=== PATIENT | male | born 1980 | race African-American/Black ===

== ENCOUNTER 2021-02-17 08:40 | Emergency (ER) | payer OTHER, SELFPAY ==
--- NOTE | ~2021-02-17 | XR_ITS ---
EXAMINATION: XR hip LT min 3V w AP pelvis DATE: 02/17/2021 10:29 INDICATION: Left hip pain post injury TECHNIQUE: Anteroposterior view of the pelvis and anteroposterior, frog leg and cross-table lateral v iews of the left hip were obtained. COMPARISON: None. FINDINGS: Old healed intertrochanteric fracture at the proximal right femur with antegrade intramedullary nidhi a nd femoral neck dynamic compression screw fixation. Alignment remains near-anatomic. No acute fractur es identified. Mild bilateral hip osteoarthritis. Multiple phleboliths in the pelvis. IMPRESSION: 1. Mild left hip osteoarthritis. No acute osseous abnormality. 2. Old healed internally fixed intertrochanteric fracture of the proximal right femur. Reviewed, dictated and finalized at location A.
[2021-02-17 08:52] VITALS: BP 159/105; PULSE 97; RESP 20; TEMP 36.5; O2SAT 97
[2021-02-17 10:08] VITALS: BP 141/81; PULSE 89; RESP 20; O2SAT 100
--- NOTE | 2021-02-17 10:22 | ED.GENADULT ---
HPI - General Adult General Chief complaint: Unspecified Stated complaint: left groin pain Time Seen by Provider: 02/17/21 10:07 Source: patient Mode of arrival: ambulatory Limitations: no limitations History of Present Illness HPI narrative: This is a 40-year-old male that presents to the emergency department for left hip pain since yesterday. Reports he stepped off a curb and felt like he twisted the leg. Since he has had pain in the left hip/groin area. Worse with movement and relieved with rest. Denies decreased range of motion or numbness. Related Data Allergies Allergy/AdvReac Type Severity Reaction Status Date / Time No Known Allergies Allergy Unknown Verified 02/17/21 08:56 Review of Systems Review of Systems: CONSTITUTIONAL: Denies fever GASTROINTESTINAL: Denies abdominal pain, nausea, vomiting GENITOURINARY: Denies dysuria or hematuria. MUSCULOSKELETAL: Reports joint pain, and myalgia. NEUROLOGIC: Denies numbness, or weakness. 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 They have 1 child together and he has 3 other children. He drinks alcohol occasionally and in moderation moderation. He denies illicit substance use. He is interested in stopping tobacco use. It was discussed with him that they peeing and E cigarettes were not unacceptable alternative to smoking. Years smoked: 8 Smoking status: Current every day smoker Tobacco type: cigarettes Alcohol intake: unknown Substance use: never Substance use type: does not use Gender identity (if verbalized by the patient): Male Spiritual care concerns: No Agree to blood products: Yes Exam Narrative: GENERAL: Well-appearing, well-nourished, and in no acute distress. HEAD: Normocephalic, atraumatic. EYES: EOMI. CHEST: Clear to auscultation. No respiratory distress. No wheezes rales or rhonchi HEART: Regular rate and rhythm. No murmur heard. Normal peripheral pulses. ABDOMEN: Soft, nontender, nondistended, normal active bowel sounds. EXTREMITIES: Normal range of motion. Pain with active range of motion in the left hip. No edema or obvious deformity. Normal DP pulses. Normal sensation SKIN: Warm, dry, no rash. NEURO: No focal deficits. Alert and oriented x3. PSYCH: Normal mood and affect Course Vital Signs Vital signs: Vital Signs Temperature 97.7 F 02/17/21 08:52 Pulse Rate 97 02/17/21 08:52 Respiratory Rate 20 02/17/21 08:52 Blood Pressure 159/105 H 02/17/21 08:52 Pulse Oximetry 97 02/17/21 08:52 Temperature 97.7 F 02/17/21 08:52 Pulse Rate 88 02/17/21 10:43 Respiratory Rate 20 02/17/21 10:43 Blood Pressure 141/81 H 02/17/21 10:08 Pulse Oximetry 100 02/17/21 10:43 Medical Decision Making MDM Narrative Medical decision making narrative: Patient presents the emergency department for left hip pain after an injury yesterday. Left hip x-rays without acute osseous abnormalities. Patient instructed to rest, ice and take [id number] pain medication as needed. He is to follow-up with his primary care doctor. He was given warnings to return to the ER Vital Signs Vital Signs: Vital Signs Temperature 97.7 F 02/17/21 08:52 Pulse Rate 97 02/17/21 08:52 Respiratory Rate 20 02/17/21 08:52 Blood Pressure 159/105 H 02/17/21 08:52 Pulse Oximetry 97 02/17/21 08:
[2021-02-17] MEDS: KETOROLAC (*BKC) 60 MG/2 ML VIAL IM (10:38)
[2021-02-17] MEDS: ACETAMINOPHEN 500 MG TABLET 1000 MG PO (10:39)
[2021-02-17 10:43] VITALS: PULSE 88; RESP 20; O2SAT 100
[2021-02-17 11:08] VITALS: TEMP 36.5
[2021-02-17 11:09] VITALS: TEMP 36.5
[2021-02-17 11:33] VITALS: BP 141/81; PULSE 98; RESP 18; O2SAT 97
== END 2021-02-17 11:35 | disposition home or self-care (01) ==
PROVIDERS: Emergency Provider Emergency Medicine; PCP Emergency Medicine
DX: M25.552 Pain in left hip (principal); M10.9 Gout, unspecified; I10 Essential (primary) hypertension; E66.9 Obesity, unspecified; Z68.36 Body mass index [BMI] 36.0-36.9, adult; F17.210 Nicotine dependence, cigarettes, uncomplicated; M16.12 Unilateral primary osteoarthritis, left hip; X50.9XXA Other and unspecified overexertion or strenuous movements or postures, initial encounter
CPT/HCPCS: 73502; 96372; 99283; A9270; J1885

== ENCOUNTER 2022-05-30 09:06 | Emergency (ER) | payer BC, SELFPAY ==
--- NOTE | ~2022-05-30 | XR_ITS ---
EXAMINATION: XR knee RT 3V DATE: 05/30/2022 09:43 INDICATION: Right knee injury and pain. TECHNIQUE: 3 views of right knee were obtained. COMPARISON: None. FINDINGS: Bone alignment is normal. No fracture. There is mild osteoarthritis of medial and lateral c ompartments. There is a moderate-sized knee joint effusion. IMPRESSION: 1. Moderate-sized knee joint effusion. No fracture identified. 2. Mild right knee osteoarthritis. Reviewed, dictated and finalized at location A. TECHNICIAN
[2022-05-30 09:16] VITALS: BP 174/120; PULSE 100; RESP 19; TEMP 36.6; O2SAT 100
--- NOTE | 2022-05-30 10:07 | ED.LOWEXIN ---
HPI - Extremity Injury (Lower) General Chief Complaint: Extremity Injury, Lower Stated Complaint: R. knee pain Time Seen by Provider: 05/30/22 09:44 History of Present Illness HPI Narrative: Patient is a 41-year-old male here for evaluation of right knee pain over the past 3 days. Patient states that he was stepping down a curb when he accidentally twisted his leg and has noticed pain and swelling in his knee since. He has been taking ibuprofen without relief of his pain. He has been able to bear weight but just notes it is painful. No ankle, foot or lower leg pain. Related Data Allergies Allergy/AdvReac Type Severity Reaction Status Date / Time No Known Allergies Allergy Unknown Verified 02/17/21 08:56 Review of Systems Review of Systems: Gen: Denies fevers or chills Eyes: Denies eye pain or visual change ENT: Denies congestion Respiratory: Denies shortness of breath or cough CV: Denies chest pain or palpitations GI: Denies abdominal pain nausea, emesis or diarrhea denies burning, urgency, frequency or hematuria Musculoskeletal: Reports right knee pain. 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 They have 1 child together and he has 3 other children. He drinks alcohol occasionally and in moderation moderation. He denies illicit substance use. He is interested in stopping tobacco use. It was discussed with him that they peeing and E cigarettes were not unacceptable alternative to smoking. Years smoked: 8 Smoking status: Current every day smoker Tobacco type: cigarettes Alcohol intake: unknown Substance use: never Substance use type: does not use Gender identity (if verbalized by the patient): Male Spiritual care concerns: No Agree to blood products: Yes Exam Narrative: APPEARANCE: Well appearing, no pain in distress, well-nourished. Head: Normocephalic and atraumatic. EYES: PERRLA/EOMI, conjunctivae clear NOSE: No nasal drainage EARS: External ear normal in appearance THROAT: Oropharynx is clear. Mucous membranes are moist. NECK: Supple. No adenopathy, no masses. RESPIRATORY: Airway patent, respirations nonlabored. Clear to auscultation bilaterally, no rales, rhonchi, wheezing. CARDIOVASCULAR: Strong DP and PT pulses bilaterally. Regular rate and rhythm without murmurs, rubs, or gallops. ABDOMINAL: Normoactive bowel sounds. Soft, nontender, nondistended. No rebound tenderness or guarding. MUSCULOSKELETAL: Tender to palpation along medial joint line of right knee. Mild swelling noted. Pain with active flexion of the knee, no pain with extension. Slight laxity noted with valgus stress. Negative anterior and posterior drawer test. NEURO: Normal speech. No focal neurologic deficits. SKIN: Skin is warm and dry. No rashes. PSYCHIATRIC: Normal affect/mood. Course Vital Signs Vital signs: Vital Signs Temperature 98 F 05/30/22 09:16 Pulse Rate 100 05/30/22 09:16 Respiratory Rate 19 05/30/22 09:16 Blood Pressure 174/120 H 05/30/22 09:16 Pulse Oximetry 100 05/30/22 09:16 Oxygen Delivery Room Air 05/30/22 09:16 Temperature 98 F 05/30/22 09:16 Pulse Rate 100 05/30/22 09:16 Respiratory Rate 19 05/30/22 09:16 Blood Pressure 174/120 H 05/30/22 09:16 P
--- NOTE | 2022-05-30 10:20 | PC.NURSE ---
Jimy wrap applied to right knee and crutches given. 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
== END 2022-05-30 10:22 | disposition home or self-care (01) ==
LOC: ANHED 10:05
PROVIDERS: Emergency Provider Physician Assistant; PCP Emergency Medicine
DX: S83.91XA Sprain of unspecified site of right knee, initial encounter (principal); I10 Essential (primary) hypertension; M17.11 Unilateral primary osteoarthritis, right knee; E66.9 Obesity, unspecified; Z68.36 Body mass index [BMI] 36.0-36.9, adult; F17.210 Nicotine dependence, cigarettes, uncomplicated; X50.9XXA Other and unspecified overexertion or strenuous movements or postures, initial encounter
CPT/HCPCS: 73562; 99283

== ENCOUNTER 2022-06-27 05:55 | Emergency (ER) | payer OTHER, BC, SELFPAY ==
--- NOTE | ~2022-06-27 | XR_ITS ---
EXAMINATION: XR knee RT min 4V DATE: 06/27/2022 07:20 INDICATION: Right knee injury. TECHNIQUE: 4 views of right knee were obtained. COMPARISON: Right knee radiographs 05/30/2022 FINDINGS: Bone alignment is normal. No fracture. There is moderate osteoarthritis of lateral compartm ent and mild osteoarthritis of medial and patellofemoral compartments. There is a moderate-sized righ t knee joint effusion. IMPRESSION: 1. Moderate right knee osteoarthritis. 2. Stable moderate-sized right knee joint effusion. Reviewed, dictated and finalized at location A. NING TECHNICIAN
[2022-06-27 05:59] VITALS: BP 186/134; PULSE 100; RESP 20; TEMP 36.7; O2SAT 98
[2022-06-27 07:05] VITALS: BP 149/102; PULSE 78; RESP 16; O2SAT 97
[2022-06-27 07:06] VITALS: O2SAT 98
[2022-06-27 07:15] VITALS: O2SAT 98
--- NOTE | 2022-06-27 07:19 | PC.NURSE ---
Report given to FE Mcgraw.
--- NOTE | 2022-06-27 08:23 | ED.GENADULT ---
HPI - General Adult General Chief complaint: Extremity Injury, Lower Stated complaint: R knee pain Time Seen by Provider: 06/27/22 06:57 History of Present Illness HPI narrative: 41-year-old male presented to the emergency department for evaluation of worsening right knee pain. Patient states he had a knee injury due to hyperextension May 28. Patient did have recent follow-up with orthopedics and was referred to a specialist in [place]. Patient has a scheduled for Thursday. Patient has been taking tramadol for pain control with no significant control. Patient denies any new injury. On arrival to the emergency department patient was not wearing a knee immobilizer. Related Data Allergies Allergy/AdvReac Type Severity Reaction Status Date / Time No Known Allergies Allergy Unknown Verified 02/17/21 08:56 Review of Systems Review of Systems: CONSTITUTIONAL: Denies fever, chills, or sweats. EYES: Denies visual changes, redness, or discharge. ENT: Denies rhinorrhea, congestion, sore throat, or otalgia. CARDIOVASCULAR: Denies chest pain, palpitations, or edema. RESPIRATORY: Denies cough or dyspnea. GASTROINTESTINAL: Denies abdominal pain, nausea, vomiting, or diarrhea. GENITOURINARY: Denies dysuria or hematuria. SKIN: Denies rash or itching. MUSCULOSKELETAL: See HPI NEUROLOGIC: Denies headache, numbness, or weakness. 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 They have 1 child together and he has 3 other children. He drinks alcohol occasionally and in moderation moderation. He denies illicit substance use. He is interested in stopping tobacco use. It was discussed with him that they peeing and E cigarettes were not unacceptable alternative to smoking. Years smoked: 8 Smoking status: Current every day smoker Tobacco type: cigarettes Alcohol intake: unknown Substance use: never Substance use type: does not use Gender identity (if verbalized by the patient): Male Spiritual care concerns: No Agree to blood products: Yes Exam Narrative: APPEARANCE: Well appearing, no pain, no distress, well-nourished. HEAD: normocephalic, atraumatic. EYES: PERRLA/EOMI, conjunctivae clear. NOSE: Normal no drainage NECK: Supple. No adenopathy, no masses. RESPIRATORY: Airway patent, respirations nonlabored. Clear to auscultation bilaterally, no rales, rhonchi, wheezing. CARDIOVASCULAR: Regular rate and rhythm without murmurs rubs or gallops. ABDOMINAL: Soft, nontender, nondistended, normal bowel sounds MUSCULOSKELETAL: No tenderness to upper leg or lower leg. Patient does have a notable knee effusion with minimal tenderness to palpation. Decreased range of motion no overlying erythema. No significant pain with range of motion NEURO: Alert. Cranial nerves II through XII intact. Grossly intact SKIN: Warm, dry. Normal Color Course Course Emergency Course: Patient's x-ray showed osteoarthritis with a knee effusion. Differential diagnosis includes traumatic effusion, hemarthrosis, septic knee. Patient has no significant pain with range of motion but does have limited range of motion. Less concern for septic arthritis. Patient does have follow-up scheduled with the specialist on Thursday. Patient has been taking tramadol for pain control. Patient was provided a small prescription for [place] for additional pain control. Patient was also advised to take
[2022-06-27] MEDS: HYDROcodone/acetaminophen (*CRX) 5-325 MG TABLET 1 TAB PO (08:37)
[2022-06-27] MEDS: KETOROLAC 15 MG/ML VIAL (*BKC) IV PUSH (08:38)
[2022-06-27 08:45] VITALS: BP 170/110; PULSE 70; RESP 12; O2SAT 98
== END 2022-06-27 09:00 | disposition home or self-care (01) ==
PROVIDERS: Emergency Provider Emergency Medicine; PCP Emergency Medicine
DX: M25.461 Effusion, right knee (principal); I10 Essential (primary) hypertension; M10.9 Gout, unspecified; E66.9 Obesity, unspecified; F17.210 Nicotine dependence, cigarettes, uncomplicated; M17.11 Unilateral primary osteoarthritis, right knee
CPT/HCPCS: 73564; 96374; 99284; A9270; J1885

== ENCOUNTER 2023-08-19 13:25 | Emergency (ER) | payer OTHER, MEDICAID, SELFPAY ==
[2023-08-19 13:40] VITALS: BP 155/112; PULSE 96; RESP 20; TEMP 36.2; O2SAT 100
--- NOTE | 2023-08-19 13:48 | ED.GENADULT ---
HPI - General Adult General Chief complaint: Extremity Problem,Nontraumatic Stated complaint: Feet Swelling Time Seen by Provider: 08/19/23 13:48 Source: patient Mode of arrival: ambulatory Limitations: no limitations History of Present Illness HPI narrative: 43-year-old male presents with complaint of pain to left ankle with swelling for the past 2 days. Patient reports history of gout to left ankle and foot. Thinks that that is what is going on today. Patient states that he is ambulatory allowed while at work and is in pain. Would like a few days off of work. Patient's blood pressure elevated today. States that he still has hydrochlorothiazide and amlodipine that he took this morning. States that he has not been taking his blood pressure medications every day because he is trying to make them last until he can find a new primary care physician. Denies chest pain And shortness of breath. all systems reviewed and negative except as noted above. Related Data Home Medications Medication Instructions Recorded Confirmed amlodipine 5 mg tablet (Norvasc) 10 mg PO QAM 08/19/23 carvedilol 6.25 mg tablet mg 08/19/23 hydrochlorothiazide 12.5 mg capsule mg 08/19/23 Allergies Allergy/AdvReac Type Severity Reaction Status Date / Time No Known Allergies Allergy Unknown Verified 08/19/23 13:30 Review of Systems Review of Systems: CONSTITUTIONAL: Denies fever, chills, or sweats. EYES: Denies visual changes, redness, or discharge. ENT: Denies rhinorrhea, congestion, sore throat, or otalgia. CARDIOVASCULAR: Denies chest pain, palpitations, or edema. RESPIRATORY: Denies cough or dyspnea. GASTROINTESTINAL: Denies abdominal pain, nausea, vomiting, or diarrhea. GENITOURINARY: Denies dysuria or hematuria. SKIN: Denies rash or itching. MUSCULOSKELETAL: Denies back pain, joint pain, or myalgia. Reports pain to left ankle with swelling. NEUROLOGIC: Denies headache, numbness, or weakness. PSYCHIATRIC: Denies anxiety or depression. All other systems reviewed are negative, except as documented in HPI. PENDING SALE TO [facility] Past Medical History Medical History Gout HTN (hypertension) Obesity (BMI 30-39.9) Surgical History Surgical History No history of previous surgery Family History Family History Father No known health problems Mother No known health problems Social History Social History (Updated 04/17/19 @ 05:53 by Yasmeen Romo, DO) Social History: The patient is in [employer]. 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 They have 1 child together and he has 3 other children. He drinks alcohol occasionally and in moderation moderation. He denies illicit substance use. He is interested in stopping tobacco use. It was discussed with him that they peeing and E cigarettes were not unacceptable alternative to smoking. Years smoked: 8 Smoking status: Current every day smoker Tobacco type: cigarettes Alcohol intake: unknown Substance use: never Substance use type: does not use Gender identity (if verbalized by the patient): Male Spiritual care concerns: No Agree to blood products: Yes Comments At time of signature, agree with nursing past medical, surgical, social and family history. There is no relevant family history pertinent to the presenting complaint. Exam Narrative: GENERAL: This is a well-nourished, well-developed patient, in no apparent distress. HEAD: normocephalic, atraumatic. EYES: PERRL. Sclera clear/white. Vision is grossly intact. EARS: External ears normal NOSE: External nose normal NECK: Neck supple, non-tender without lymphadenopathy, masses or thyromegaly. CARDIOVASCULAR: Regular rate and rhythm without murmurs, gallops, or rubs. RESPIRATORY: Clear to auscultation. Breath sounds equal bila
== END 2023-08-19 14:08 | disposition home or self-care (01) ==
PROVIDERS: Emergency Provider Nurse Practitioner Family; PCP Emergency Medicine
DX: I10 Essential (primary) hypertension (principal); M10.9 Gout, unspecified; F17.210 Nicotine dependence, cigarettes, uncomplicated; E66.9 Obesity, unspecified; Z68.38 Body mass index [BMI] 38.0-38.9, adult
CPT/HCPCS: 99211; 99213; G0463

== ENCOUNTER 2023-12-11 07:33 | Emergency (ER) | payer OTHER, MEDICAID, SELFPAY ==
[2023-12-11 07:40] VITALS: BP 190/132; PULSE 102; RESP 18; TEMP 36.4; O2SAT 98
[2023-12-11 08:22] VITALS: BP 188/126; PULSE 89; RESP 24; O2SAT 95
[2023-12-11 09:19] VITALS: BP 201/125; PULSE 88; RESP 22; O2SAT 98
--- NOTE | 2023-12-11 09:41 | ED.EXTPRO ---
HPI - Extremity Problem General Chief complaint: Extremity Problem,Nontraumatic Stated complaint: bilateral ankle pain, gout flare up? Time Seen by Provider: 12/11/23 09:18 History of Present Illness HPI Narrative: 43-year-old male with history of uncontrolled hypertension, obesity, gout, medication noncompliance presents to the emergency department with concerns for a gout attack. Patient states approximately 4 days ago he began having pain in his right ankle and is now having pain in the dorsum of his left foot. States this has happened in the past and has been due to gout. States he has been treated for gout with improvement, last treatment was in August. He denies injury or trauma to his ankles or feet, fever, nausea or vomiting. He denies pain or difficulty with range of motion of his feet or ankles. He also presents with hypertension. he has a history of hypertension and is prescribed amlodipine 10 mg and hydrochlorothiazide 12.5 mg. States he does not take his medications daily and he has no reason for those. States his last dose of antihypertensives was approximately 5 days ago, however per chart review he has not filled his medications since 2020. He denies chest pain, shortness of breath, vision changes, headache, focal numbness or weakness. Related Data Home Medications Medication Instructions Recorded Confirmed amlodipine 5 mg tablet (Norvasc) 10 mg PO QAM 08/19/23 carvedilol 6.25 mg tablet mg 08/19/23 hydrochlorothiazide 12.5 mg capsule mg 08/19/23 Allergies Allergy/AdvReac Type Severity Reaction Status Date / Time No Known Allergies Allergy Unknown Verified 12/11/23 07:54 Review of Systems Review of Systems: CONSTITUTIONAL: Denies fever, chills, or sweats. EYES: Denies visual changes, redness, or discharge. ENT: Denies rhinorrhea, congestion, sore throat, or otalgia. CARDIOVASCULAR: Denies chest pain, palpitations, or edema. RESPIRATORY: Denies cough or dyspnea. GASTROINTESTINAL: Denies abdominal pain, nausea, vomiting, or diarrhea. GENITOURINARY: Denies dysuria or hematuria. SKIN: Denies rash or itching. MUSCULOSKELETAL: See HPI NEUROLOGIC: Denies headache, numbness, or weakness. PSYCHIATRIC: Denies anxiety or depression. [facility] Past Medical History Medical History Gout HTN (hypertension) Obesity (BMI 30-39.9) Surgical History Surgical History No history of previous surgery Family History Family History Father No known health problems Mother No known health problems Social History Social History Social History: The patient is in [employer]. 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 They have 1 child together and he has 3 other children. He drinks alcohol occasionally and in moderation moderation. He denies illicit substance use. He is interested in stopping tobacco use. It was discussed with him that they peeing and E cigarettes were not unacceptable alternative to smoking. Years smoked: 8 Smoking status: Current every day smoker Tobacco type: cigarettes Alcohol intake: unknown Substance use: never Substance use type: does not use Gender identity (if verbalized by the patient): Male Spiritual care concerns: No Agree to blood products: Yes Exam Narrative: GENERAL: Well-appearing, well-nourished, and in no acute distress. HEAD: Normocephalic, atraumatic. EYES: PERRLA and EOMI. ENT: Nares clear, no rhinorrhea or epistaxis. Mucous membranes moist. NECK: Supple. CHEST: Clear to auscultation. No respiratory distress. HEART: Regular rate and rhythm. No murmur heard. Normal peripheral pulses. ABDOMEN: Soft, nontender, nondistended, normal active bowel sounds. EXTREMITIES: RLE: minimal tenderness to the posterior
[2023-12-11] MEDS: amLODIPine BESYLATE 10 MG TABLET PO (09:55)
[2023-12-11] MEDS: hydroCHLOROthiazide 12.5 MG CAPSULE PO (09:55)
[2023-12-11 09:56] VITALS: BP 168/129; PULSE 91; RESP 16; O2SAT 100
[2023-12-11 10:07] LABS: Uric Acid 8.8 mg/dL (3.5-8.5)
[2023-12-11] MEDS: HYDROcodone/acetaminophen (*CRX) 5-325 MG TABLET 1 TAB PO (10:26)
[2023-12-11] MEDS: predniSONE 40 MG, predniSONE 10 MG 50 MG PO (10:26)
[2023-12-11 10:38] VITALS: BP 171/116; PULSE 90; RESP 21; O2SAT 100
== END 2023-12-11 10:40 | disposition home or self-care (01) ==
PROVIDERS: Emergency Provider Physician Assistant; PCP Emergency Medicine
DX: M79.672 Pain in left foot (principal); M25.571 Pain in right ankle and joints of right foot; I10 Essential (primary) hypertension; F17.210 Nicotine dependence, cigarettes, uncomplicated
CPT/HCPCS: 36415; 84550; 99283; A9270; J7512

== ENCOUNTER 2024-02-04 20:15 | Emergency (ER) | payer OTHER, MEDICAID, SELFPAY ==
[2024-02-04 20:26] VITALS: BP 164/116; PULSE 96; RESP 18; TEMP 36.6; O2SAT 97
--- NOTE | 2024-02-04 21:03 | ED.DENTAL ---
HPI - Dental/Oral General Chief complaint: Dental/Oral Stated complaint: right upper tooth pain Time Seen by Provider: 02/04/24 20:46 Source: patient Mode of arrival: ambulatory Limitations: no limitations History of Present Illness HPI Narrative: This is a 43 year old male that presents to the ER for dental pain. Ongoing over the last couple of days. Reports pain in the right upper and lower molars. Reports worse with eating. He does not currently have a dentist. Denies fever, erythema, edema or drainage. MD Complaint: tooth pain Related Data Home Medications Medication Instructions Recorded Confirmed amlodipine 5 mg tablet (Norvasc) 10 mg PO QAM 08/19/23 carvedilol 6.25 mg tablet mg 08/19/23 hydrochlorothiazide 12.5 mg capsule mg 08/19/23 Allergies Allergy/AdvReac Type Severity Reaction Status Date / Time No Known Allergies Allergy Unknown Verified 12/11/23 07:54 Review of Systems Review of Systems: CONSTITUTIONAL: Denies fever ENT: Reports dentalgia All systems reviewed & are unremarkable except as noted in HPI and below PMFSH Past Medical History Medical History Gout HTN (hypertension) Obesity (BMI 30-39.9) Surgical History Surgical History No history of previous surgery Family History Family History Father No known health problems Mother No known health problems Social History Social History Social History: 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 They have 1 child together and he has 3 other children. He drinks alcohol occasionally and in moderation moderation. He denies illicit substance use. He is interested in stopping tobacco use. It was discussed with him that they peeing and E cigarettes were not unacceptable alternative to smoking. Years smoked: 8 Smoking status: Current every day smoker Tobacco type: cigarettes Alcohol intake: unknown Substance use: never Substance use type: does not use Gender identity (if verbalized by the patient): Male Spiritual care concerns: No Agree to blood products: Yes Exam Narrative: GENERAL: Well-appearing, well-nourished, and in no acute distress. HEAD: Normocephalic, atraumatic. EYES: EOMI. ENT: Nares clear, no rhinorrhea or epistaxis. Mucous membranes moist. Oropharynx without tonsillar hypertrophy exudate or other lesions. Poor dentition. No erythema, edema or fluctuance surrounding right upper and lower molars to suggest abscess. No trismus, floor of mouth is soft NECK: Supple. No adenopathy or masses. CHEST: Clear to auscultation. No respiratory distress. No wheezes rales or rhonchi HEART: Regular rate and rhythm. No murmur heard. Normal peripheral pulses. EXTREMITIES: Normal range of motion. No edema. SKIN: Warm, dry, no rash. NEURO: No focal deficits. Alert and oriented x3. PSYCH: Normal mood and affect Course Vital Signs Vital signs: Vital Signs Temperature 97.8 F 02/04/24 20:26 Pulse Rate 96 02/04/24 20:26 Respiratory Rate 18 02/04/24 20:26 Blood Pressure 164/116 H 02/04/24 20:26 Pulse Oximetry 97 02/04/24 20:26 Temperature 97.8 F 02/04/24 20:26 Pulse Rate 96 02/04/24 20:26 Respiratory Rate 18 02/04/24 20:26 Blood Pressure 164/116 H 02/04/24 20:26 Pulse Oximetry 97 02/04/24 20:26 MDM - Dental/Oral MDM Narrative Medical decision making narrative: Patient presents to the emergency department for dentalgia ongoing over the last couple of days. He is afebrile and nontoxic appearing. No evidence of abscess on exam. Will be started on Augmentin and instructed to have close follow-up with a dentist. He was given warnings to return to the ER Differential Diagnosis Differential diagnosis: L
[2024-02-04] MEDS: KETOROLAC 30 MG/ML VIAL (*BKC) IM (21:09)
[2024-02-04] MEDS: ACETAMINOPHEN 500 MG TABLET 1000 MG PO (21:09)
== END 2024-02-04 21:35 | disposition home or self-care (01) ==
LOC: ANHED 21:23
PROVIDERS: Emergency Provider Physician Assistant; PCP Emergency Medicine
DX: K08.89 Other specified disorders of teeth and supporting structures (principal); I10 Essential (primary) hypertension; E66.9 Obesity, unspecified; Z68.41 Body mass index [BMI] 40.0-44.9, adult; M10.9 Gout, unspecified; F17.210 Nicotine dependence, cigarettes, uncomplicated
CPT/HCPCS: 96372; 99283; A9270; J1885

== ENCOUNTER 2024-02-23 16:58 | Emergency (ER) | payer OTHER, MEDICAID, SELFPAY ==
--- NOTE | ~2024-02-23 | XR_ITS ---
EXAM: XR foot RT min 3V DATE: 02/23/2024 17:19 HISTORY: gout? . COMPARISON: 05/15/2015. FINDINGS: Normal mineralization. No fracture or dislocation. No lytic or blastic lesion. Moderate randolph int space narrowing and subchondral sclerosis at the first MTP joint. Moderate hallux valgus. Lucent erosions with sclerotic margins at the first MTP joint, may represent gouty erosions versus artifact from osteoarthritic changes and subchondral cysts. Mild Achilles enthesopathy. Mild degenerative mejias ges in the midfoot joints No erosion or periosteal change. Soft tissues within normal limits. IMPRESSION: Moderate arthritis at the first MTP joint with moderate hallux valgus. Apparent erosions with sclerotic margins may represent gout in the appropriate clinical/laboratory context. Reviewed, dictated and finalized at location K. IMPRESSION: Moderate arthritis at the first MTP joint with moderate hallux valg us. Apparent erosions with sclerotic margins may represent gout in the appropri ate clinical/laboratory context.
[2024-02-23 17:01] VITALS: BP 190/127; PULSE 102; RESP 18; TEMP 36.6; O2SAT 96
--- NOTE | 2024-02-23 17:06 | ED.GENADULT ---
HPI - General Adult General Chief complaint: Unspecified <Sandy Tellez PA-C - Last Filed: 02/23/24 17:08> Stated complaint: gout <Sandy Tellez PA-C - Last Filed: 02/23/24 17:08> Time Seen by Provider: 02/23/24 19:55 <Sandy Tellez PA-C - Last Filed: 02/23/24 17:08> Focused HPI: 43-year-old male with history of CAD and hypertension presents to the emergency department with concerns for a gout attack to his right foot. Patient states he began having pain in his right foot and states it feels like gout. Describes it as an aching sensation. Denies injury trauma, fever. He was found to be hypertensive at 190/127 in triage. He denies vision changes, headache, chest pain or shortness of breath, focal numbness or weakness. States he has been taking his blood pressure medications as directed. GENERAL: Well-appearing, well-nourished, and in no acute distress. HEAD: Normocephalic, atraumatic. CHEST: Clear to auscultation. ?No respiratory distress. EXT: Tenderness to the right navicular bone and 1st and 2nd proximal aspect of the 1st and 2nd metatarsals with overlying edema and tenderness to palpation. No warmth erythema. Limited range of motion of the ankle secondary to pain. Cap refill less than 2. Sensation intact. Extremity warm and dry. HEART: Regular rate and rhythm.? NEURO: ?Alert and oriented x3. Patient screened in triage and initial orders placed.? ?Additional care and disposition to be based upon?diagnostic testing and treatment. <Sandy Tellez PA-C - Last Filed: 02/23/24 17:08> History of Present Illness HPI narrative: 43-year-old male with a history of gouty arthropathy, hypertension, coronary disease. Presents with signs symptoms consistent with gout. He states he has previous gout flares but has been well controlled for some time. He was previously on colchicine and indomethacin. He states he is very steroid responsive. He has been having some pain and swelling in his right elbow that resolved and now developed similarly into his right foot. He states that is so painful is hard to bear weight on it. No traumatic injuries in no other obvious symptoms. He states it feels very consistent with his normal gout flare. Does not seen but presently for this and has no recent use of steroids. Was otherwise in his normal state of health and denies any systemic features such as chest pain, shortness a breath, nausea, vomiting, abdominal pain, back pain, fever, chills. <Juan Puga MD - Last Filed: 02/23/24 20:15> Related Data Home medications: Home Medications Medication Instructions Recorded Confirmed amlodipine 5 mg tablet (Norvasc) 10 mg PO QAM 08/19/23 carvedilol 6.25 mg tablet mg 08/19/23 hydrochlorothiazide 12.5 mg capsule mg 08/19/23 <Sandy Tellez PA-C - Last Filed: 02/23/24 17:08> Allergies/adverse reactions: Allergies Allergy/AdvReac Type Severity Reaction Status Date / Time No Known Allergies Allergy Unknown Verified 02/23/24 17:23 <Sandy Tellez PA-C - Last Filed: 02/23/24 17:08> Review of Systems Review of Systems: As reviewed above in HPI <Juan Puga MD - Last Filed: 02/23/24 20:15> ON LICENSE OF [facility] Past Medical History Medical History: Medical History Gout HTN (hypertension) Obesity (BMI 30-39.9) <Sandy Tellez PA-C - Last Filed: 02/23/24 17:08> Surgical History Surgical History: Surgical History No history of previous surgery <Sandy Tellez PA-C - Last Filed: 02/23/24 17:08> Family History Family History: Family History Father No known health problems Mother No known health problems <Sandy Tellez PA-C - Last Filed: 02/23/24 17:08> Social History Social History: Soc
[2024-02-23 17:31] LABS: Basophils Percent Auto 0.6 % (0.2-1.2); Eosinophils Absolute Auto 0.3 K/mm3 (0-0.3); Eosinophils Percent Auto 5.1 % (0-4.4); Immature Granulocyte Absolute 0.01 K/mm3 (0.00-0.031); Immature Granulocyte Percent A 0.2 % (0-0.5); Lymphocytes Absolute Auto 1.77 K/mm3 (0.9-3.2); Lymphocytes Percent Auto 28.2 % (18.3-44.2); Mean Corpuscular HGB Conc 34.1 g/dl (32-36); Mean Corpuscular Hemoglobin 28.2 pg (26-34); Mean Corpuscular Volume 82.7 fl (80-100); Mean Platelet Volume 11.1 fl (7.4-10.4); Monocytes Absolute Auto 0.6 K/mm3 (0.1-0.6); Monocytes Percent Auto 9.9 % (2.6-8.5); Neutrophils Absolute Auto 3.5 K/mm3 (1.3-6.7); Platelet Count Result 294 k/mm3 (150-375); Red Blood Count 4.96 M/mm3 (4.6-6.20); Red Cell Distribution Width 13.3 % (11.5-14.5); White Blood Count 6.3 K/mm3 (4.5-10.0)
[2024-02-23] MEDS: IBUPROFEN 400 MG TABLET 800 MG PO (17:41)
[2024-02-23 17:48] LABS: Anion Gap 11 mmol/L (4-12); Blood Urea Nitrogen 11 mg/dL (9-20); CRP < 0.5 mg/dL (<1.0); Calcium 9.2 mg/dL (8.4-10.2); Carbon Dioxide 28 mmol/L (22-30); Chloride 100 mmol/L (98-107); Estimated CRCL calculation 93 ml/min; Estimated Glomerular Filt Rate > 60; Glucose 108 mg/dL (65-110); Potassium 3.6 mmol/L (3.4-5.0); Sodium 139 mmol/L (137-145); Uric Acid 10.1 mg/dL (3.5-8.5)
[2024-02-23 18:16] LABS: Erythrocyte Sedimentation Rate 31 mm/hr (0-20)
[2024-02-23] MEDS: predniSONE 20 MG TABLET 60 MG PO (20:19)
[2024-02-23] MEDS: HYDROcodone/acetaminophen (*CRX) 10-325 MG TABLET 1 TAB PO (20:19)
[2024-02-23] MEDS: KETOROLAC 30 MG/ML VIAL (*BKC) IM (20:20)
== END 2024-02-23 20:42 | disposition home or self-care (01) ==
LOC: ANHED 20:18
PROVIDERS: Physician Assistant; Emergency Provider Student in an Organized Health Care Education/Training Program; PCP Emergency Medicine
DX: M10.9 Gout, unspecified (principal); I25.10 Atherosclerotic heart disease of native coronary artery without angina pectoris; I10 Essential (primary) hypertension; E66.9 Obesity, unspecified; Z68.38 Body mass index [BMI] 38.0-38.9, adult; F17.290 Nicotine dependence, other tobacco product, uncomplicated; Z79.899 Other long term (current) drug therapy; M19.071 Primary osteoarthritis, right ankle and foot; M20.11 Hallux valgus (acquired), right foot
CPT/HCPCS: 36415; 73630; 80048; 84550; 85025; 85652; 86140; 96372; 99283; A9270; J1885; J7512

== ENCOUNTER 2024-04-25 13:38 | Emergency (ER) | payer MEDICAID, SELFPAY ==
--- NOTE | ~2024-04-25 | XR_ITS ---
EXAMINATION: XR foot RT min 3V DATE: 04/25/2024 14:23 INDICATION: Pain at right first metatarsophalangeal joint. Gout. TECHNIQUE: 4 views of right foot were obtained. COMPARISON: Right foot radiographs 02/23/2024 FINDINGS: There is moderate hallux valgus. No fracture. Again seen are erosions and osteophytes at fi rst metatarsophalangeal joint. There is mild osteoarthritis of second distal interphalangeal joint an d some of the midfoot joints. IMPRESSION: 1. Unchanged arthritis of first metatarsophalangeal joint, likely a combination of osteoarthritis and inflammatory arthropathy such as gout. 2. Polyarticular osteoarthritis. 3. Moderate hallux valgus. Reviewed, dictated and finalized at location A. [employer]
--- NOTE | ~2024-04-25 | XR_ITS ---
XR elbow LT min 3V Ordering provider: Blanca Bee PA-C History: . pain, gout attack . Comparison: None. FINDINGS: BONES: No acute fracture or dislocation. JOINT SPACES: Normal. SOFT TISSUES: No definite joint effusion. Radiopaque shadows are seen in the soft tissues posteriorly which may be foreign bodies. IMPRESSION: No acute osseous abnormality left elbow. Possible foreign bodies in the soft tissues posteriorly. Reviewed, dictated and finalized at location A. [employer]
[2024-04-25 13:43] VITALS: BP 179/130; PULSE 114; RESP 20; TEMP 36.9; O2SAT 97
--- NOTE | 2024-04-25 13:54 | ED.EXTPRO ---
HPI - Extremity Problem General Chief complaint: Extremity Problem,Nontraumatic Stated complaint: gout problems Time Seen by Provider: 04/25/24 13:45 Source: patient Mode of arrival: ambulatory Limitations: no limitations History of Present Illness HPI Narrative: Patient is a 43-year-old male who presents to the ED with report of right foot pain. Patient reports history of previous gout and states this current pain feels similar. Reports pain to right 1st toe over the last several days. Denies known injury. Was seen in the ED in February for similar symptoms, prescribed steroids and indomethacin which he states significantly improved his symptoms. Has not taken anything for pain today. Denies numbness. Also reports slight discomfort to left elbow. No injury. Related Data Home Medications Medication Instructions Recorded Confirmed amlodipine 5 mg tablet (Norvasc) 10 mg PO QAM 08/19/23 carvedilol 6.25 mg tablet mg 08/19/23 hydrochlorothiazide 12.5 mg capsule mg 08/19/23 Allergies Allergy/AdvReac Type Severity Reaction Status Date / Time No Known Allergies Allergy Unknown Verified 02/23/24 17:23 Review of Systems Review of Systems: All systems reviewed & are unremarkable except as noted in HPI. 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 They have 1 child together and he has 3 other children. He drinks alcohol occasionally and in moderation moderation. He denies illicit substance use. He is interested in stopping tobacco use. It was discussed with him that they peeing and E cigarettes were not unacceptable alternative to smoking. Years smoked: 8 Smoking status: Current every day smoker Tobacco type: cigarettes Alcohol intake: unknown Substance use: never Substance use type: does not use Gender identity (if verbalized by the patient): Male Spiritual care concerns: No Agree to blood products: Yes Exam Narrative: GENERAL: Well appearing, morbidly obese with BMI 41.5, non-toxic, in no acute distress. HEAD: Normocephalic, atraumatic. RESPIRATORY: Airway patent, respirations nonlabored. Clear to auscultation bilaterally, no rales, rhonchi, wheezing. CARDIOVASCULAR: Regular rate and rhythm without murmurs, rubs, or gallops. MUSCULOSKELETAL: Moves all extremities. No gross deformities. Mild swelling, minimal erythema/warmth, and focal TTP to R 1st MTP joint. No wounds. L elbow joint with minimal TTP over olecranon. No significant swelling. No warmth or erythema. SKIN: Warm, dry, normal color. NEURO: A&O X3. Speech clear. Cranial nerves II-XII grossly intact. Mildly antalgic gait. No ataxic movements. PSYCHIATRIC: Appropriate mood and affect. Normal interaction. Course Vital Signs Vital signs: Vital Signs Temperature 98.5 F 04/25/24 13:43 Pulse Rate 114 H 04/25/24 13:43 Respiratory Rate 20 04/25/24 13:43 Blood Pressure 179/130 H 04/25/24 13:43 Pulse Oximetry 97 04/25/24 13:43 Oxygen Delivery Room Air 04/25/24 13:43 Temperature 98.5 F 04/25/24 13:43 Pulse Rate 70 04/25/24 14:49 Respiratory Rate 15 04/25/24 14:49 Blood Pressure 179/130 H 04/25/24 13:43 Pulse Oximetry 100 04/25/24 14:49 Oxygen Delivery Room Air 04/25/24 13:43 MDM - Extremity (Nontraumatic) MDM Narrative Medical decision making narrative: patient presented to ED with suspected recurrent gout. Pain to 1st MTP of R foot. Also reporting some discomfort with L elbow. patient has long history of gout and states pain feels similar to previous exacerbations. In similar location to previous exacerbations. X-ray of right foot consistent with gout. No acute osseous abnormality. X-ray of left elbow negative. Does show possible foreign body, no foreign bodies noted on exam. Have low suspicion for cellulitis or DVT at this time, patient denies any fevers. Vital signs are otherwise stable. No indication for further laboratory studies at this time. patient will be started on indomethacin. He has tolerated this before and done well with it. Given dose of Solu-Medrol and Toradol in the ED. will refer to Podiatry given recurrent episodes of gout. Patient given strict return precautions. He agrees w/ plan. Discharged in stable condition. Medical Records Attestation: I reviewed the patient's medical records. Imaging Data Attestation: I personally reviewed and interpreted this imaging study as follows: Radiologist's impression: ITS Impressions Elbow X-Ray 04/25/24 14:25 IMPRESSION: No acute osseous abnormality left elbow. Possible foreign bodies in the soft tissues posteriorly. Foot X-Ray 04/25/24 14:27 IMPRESSION: 1. Unchanged arthritis of first metatarsophalangeal joint, likely a combination of osteoarthritis and inflammatory arthropathy such as gout. 2. Polyarticular osteoarthritis. 3. Moderate hallux valgus. Discharge Plan Discharge Clinical Impression: Acute gout of right foot Qualifiers: Gout etiology: unspecified cause Qualified Code(s): M10.9 - Gout, unspecified Patient Disposition: Home, Self-Care Condition: Stable Instructions: Antibiotic Form, Low Purine Diet (ED), Gout (ED) Additional Instructions: Take indomethacin as prescribed over the next several days. You may also use Tylenol as needed for pain. Recommend frequent icing to foot, elevation foot. Follow-up with your primary care doctor and/or podiatry for further evaluation. Return to the ED if you experience worsening or severe symptoms, worsening pain, injury, numbness, or any other symptoms of concern. Prescriptions: New indomethacin 50 mg capsule 50 mg PO TID 7 Days Qty: 21 0RF Rx Instructions: administer with food or milk No Action carvedilol 6.25 mg tablet hydrochlorothiazide 12.5 mg capsule amlodipine [Norvasc] 5 mg tablet 10 mg PO QAM amlodipine 10 mg tablet 10 mg PO DAILY 30 Days Qty: 30 0RF hydrochlorothiazide 12.5 mg tablet 12.5 mg PO DAILY 30 Days Qty: 30 0RF lisinopril 20 mg tablet 20 mg PO DAILY 30 Days Qty: 30 0RF prednisone 20 mg tablet 40 mg PO DAILY 5 Days Qty: 10 0RF meloxicam 7.5 mg tablet 7.5 mg PO DAILY 14 Days Qty: 14 0RF colchicine 0.6 mg capsule 0.6 mg PO DIRECTED Qty: 3 0RF Rx Instructions: Take 2 tablets and then 1 hour later take 1 tablet. amoxicillin-pot clavulanate 875-125 mg tablet 1 tablet PO Q12H 10 Days Qty: 20 0RF methylprednisolone [Medrol (Francesco)] 4 mg tablets,dose pack See Rx Instructions .ROUTE .COMPLEX Qty: 21 0RF Rx Instructions: orally per package directions indomethacin 50 mg capsule 50 mg PO BID Qty: 20 0RF Rx Instructions: administer with food or milk amlodipine 10 mg tablet 10 mg PO DAILY Qty: 30 3RF hydrochlorothiazide 12.5 mg capsule 12.5 mg PO DAILY Qty: 30 3RF prednisone 10 mg tablet See Taper PO DAILY 15 Days Qty: 45 0RF Taper: Prednisone Taper from 50 mg;15 days 50 mg DAILY for 3 Days and 0 Hour 40 mg DAILY for 3 Days and 0 Hour 30 mg DAILY for 3 Days and 0 Hour 20 mg DAILY for 3 Days and 0 Hour 10 mg DAILY for 3 Days and 0 Hour hydrocodone-acetaminophen 5-325 mg tablet 1 tablet PO Q8H PRN (Reason: pain) Qty: 14 0RF Follow-up/Referrals: Jenaro Boss DPM [Physician] - (PODIATRY) Evert Valentino Jr., DPM [Physician] - (PODIATRY) Herman Spencer MD [Primary Care Provider] - Jean Campbell DPM [Physician] - (PODIATRY) Time of Disposition: 14:34
[2024-04-25] MEDS: KETOROLAC (*BKC) 60 MG/2 ML VIAL IM (14:43)
[2024-04-25] MEDS: methylPREDNISolone SOD SUCC 125 MG VIAL IM (14:43)
[2024-04-25 14:49] VITALS: PULSE 70; RESP 15; O2SAT 100
== END 2024-04-25 14:48 | disposition home or self-care (01) ==
LOC: ANHED 14:36
PROVIDERS: Emergency Provider Physician Assistant; PCP Emergency Medicine
DX: M10.9 Gout, unspecified (principal); M25.522 Pain in left elbow; I10 Essential (primary) hypertension; E66.9 Obesity, unspecified; Z68.41 Body mass index [BMI] 40.0-44.9, adult; F17.210 Nicotine dependence, cigarettes, uncomplicated; M19.071 Primary osteoarthritis, right ankle and foot
CPT/HCPCS: 73080; 73630; 96372; 99284; J1885; J2919

== ENCOUNTER 2024-05-18 13:04 | Emergency (ER) | payer SELFPAY ==
[2024-05-18 13:16] VITALS: BP 165/117; PULSE 105; RESP 16; TEMP 36.8; O2SAT 98
--- NOTE | 2024-05-18 14:06 | ED.URI ---
HPI - URI/Sore Throat General Chief Complaint: Upper Respiratory Infection Stated Complaint: right knee,left hand pain. Cough Time Seen by Provider: 05/18/24 14:07 Source: patient Mode of arrival: ambulatory Limitations: no limitations History of Present Illness HPI Narrative: 43 yo M presents with c/o R knee and L hand pain for 3 to 4 days. hx of gout. States pain the same with last gout flare. went to ER and got injection and fixed me up . Also reports cough for 2 days. Took 1 dose of mucinex. AFebrile. No CP or SOB. pt's BP elevated today. Has BP meds at home he thinks but has not been taking them. all systems reviewed and negative except as noted above. Related Data Home Medications Medication Instructions Recorded Confirmed amlodipine 10 mg tablet 10 mg PO DAILY 05/18/24 05/23/24 carvedilol 6.25 mg tablet 6.25 mg PO BID 05/18/24 05/23/24 Allergies Allergy/AdvReac Type Severity Reaction Status Date / Time No Known Allergies Allergy Unknown Verified 05/23/24 16:09 Review of Systems Review of Systems: CONSTITUTIONAL: Denies fever, chills, or sweats. EYES: Denies visual changes, redness, or discharge. ENT: Denies rhinorrhea, congestion, sore throat, or otalgia. CARDIOVASCULAR: Denies chest pain, palpitations, or edema. RESPIRATORY: Denies cough or dyspnea. GASTROINTESTINAL: Denies abdominal pain, nausea, vomiting, or diarrhea. GENITOURINARY: Denies dysuria or hematuria. SKIN: Denies rash or itching. MUSCULOSKELETAL: Reports pain and swelling to right knee and left hand. NEUROLOGIC: Denies headache, numbness, or weakness. PSYCHIATRIC: Denies anxiety or depression. All other systems reviewed are negative, except as documented in HPI. 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 They have 1 child together and he has 3 other children. He drinks alcohol occasionally and in moderation moderation. He denies illicit substance use. He is interested in stopping tobacco use. It was discussed with him that they peeing and E cigarettes were not unacceptable alternative to smoking. Years smoked: 8 Smoking status: Current every day smoker Tobacco type: cigarettes Alcohol intake: unknown Substance use: never Substance use type: does not use Gender identity (if verbalized by the patient): Male Spiritual care concerns: No Agree to blood products: Yes Comments At time of signature, agree with nursing past medical, surgical, social and family history. There is no relevant family history pertinent to the presenting complaint. Exam Narrative: GENERAL: This is a well-nourished, well-developed patient, in no apparent distress. HEAD: normocephalic, atraumatic. EYES: PERRL. Sclera clear/white. Vision is grossly intact. EARS: External ears normal, auditory canals clear and without drainage, TMs normal without perforation. Hearing grossly intact. NOSE: External nose normal with no obvious nasal discharge, nares without redness, no rhinorrhea. THROAT: Mucous membranes moist, posterior pharynx clear. NECK: Neck supple, non-tender without lymphadenopathy, masses or thyromegaly. CARDIOVASCULAR: Regular rate and rhythm without murmurs, gallops, or rubs. RESPIRATORY: Clear to auscultation. Breath sounds equal bilaterally. No wheezes, rales, or rhonchi. SKIN: warm, Dry, intact with no suspicious lesions or rash, good texture and turgor. NEURO: awake, alert, and oriented to person, place and time. There were no obvious focal neurologic abnormalities. EXTREMITIES: Generalized tenderness and swelling to right knee and left hand With mild erythema and warmth. Course Course Level of Care: Express Care Visit Vital Signs Vital signs: Vital Signs Temperature 36.8 C 05/18/24 13:16 Pulse Rate 105 H 05/18/24 13:16 Respiratory Rate 16 05/18/24 13:16 Blood Pressure 165/117 H 05/18/24 13:16 Pulse Oximetry 98 05/18/24 13:16 Oxygen Delivery Room Air 05/18/24 13:16 Temperature 36.8 C 05/18/24 13:16 Pulse Rate 105 H 05/18/24 13:16 Respiratory Rate 16 05/18/24 13:16 Blood Pressure 165/117 H 05/18/24 13:16 Pulse Oximetry 98 05/18/24 13:16 Oxygen Delivery Room Air 05/18/24 13:16 Reviewed MDM - URI/Sore Throat MDM Narrative Medical decision making narrative: will treat patient for gout. Reports his last flare was also to right knee and left hand. Lungs are clear to auscultation. Patient's cough is most likely viral. Blood pressure elevated today. Refilled patient's blood pressure medications. He has no complaints chest pain or shortness of breath. Patient is aware of diagnosis, understands and agrees to treatment plan. Anticipatory guidance given. Patient agrees to follow-up as directed and is aware of reasons to seek care at the emergency department. Portions of this record may have been created with voice recognition software Discharge Plan Discharge Clinical Impression: Gout, Uncontrolled stage 2 hypertension, Viral upper respiratory tract infection with cough Patient Disposition: Home, Self-Care Condition: Stable Instructions: Gout (ED), Hypertension (ED) Additional Instructions: Take medications as prescribed. You need to take your blood pressure medications every day. Follow up with your primary care physician at next available appointment. If you have chest pain or shortness of breath go to the ER. Prescriptions: New prednisone 20 mg tablet 40 mg PO DAILY 5 Days Qty: 10 0RF diclofenac potassium 50 mg tablet 50 mg PO TID 10 Days Qty: 30 0RF benzonatate 200 mg capsule 200 mg PO TID PRN (Reason: cough) Qty: 20 0RF amlodipine 10 mg tablet 10 mg PO DAILY 30 Days Qty: 30 0RF carvedilol 6.25 mg tablet 6.25 mg PO BID 30 Days Qty: 60 0RF Rx Instructions: must administer with a meal/food No Action methylprednisolone [Medrol (Francesco)] 4 mg tablets,dose pack See Rx Instructions .ROUTE .COMPLEX Qty: 21 0RF Rx Instructions: for 6 days carvedilol 6.25 mg tablet 6.25 mg PO BID amlodipine 10 mg tablet 10 mg PO DAILY Follow-up/Referrals: Herman Spencer MD [Primary Care Provider] - Time of Disposition: 15:05
[2024-05-18] MEDS: cloNIDine HCL 0.1 MG TABLET PO (14:24)
--- NOTE | 2024-05-18 15:04 | PC.NURSE ---
BP 180/130 manually in the right arm prior to Clonidine administration at 1424. BP rechecked manually in the right arm at 1500, 176/138. Denies chest pain, blurry vision, dizziness or DORMAN.
== END 2024-05-18 15:09 | disposition home or self-care (01) ==
PROVIDERS: Emergency Provider Nurse Practitioner Family; PCP Emergency Medicine
DX: M10.9 Gout, unspecified (principal); I10 Essential (primary) hypertension; J06.9 Acute upper respiratory infection, unspecified; R05.9 Cough, unspecified; F17.210 Nicotine dependence, cigarettes, uncomplicated; E66.9 Obesity, unspecified; Z68.38 Body mass index [BMI] 38.0-38.9, adult
CPT/HCPCS: 99213; A9270; G0463

== ENCOUNTER 2024-05-23 15:14 | Emergency (ER) | payer OTHER, SELFPAY ==
--- NOTE | ~2024-05-23 | XR_ITS ---
EXAM: XR hand RT min 3V DATE: 05/23/2024 16:40 HISTORY: pain . COMPARISON: None available. FINDINGS: Exam limited by nonstandard positioning and overlapping fingers in both frontal and lateral views. Normal mineralization. No fracture or dislocation. No lytic or blastic lesion. Joint spaces a re maintained. No erosion or periosteal change. Soft tissue swelling over the dorsal hand and lateral hand. IMPRESSION: No definite acute osseous finding in the hand with somewhat limited visualization of the finger bones. Dorsal and lateral soft tissue swelling. Reviewed, dictated and finalized at location [facility]. [facility]
[2024-05-23 15:26] VITALS: BP 152/116; PULSE 95; RESP 16; TEMP 36.6; O2SAT 98
--- NOTE | 2024-05-23 15:54 | ED_ITS ---
HPI - Extremity Injury (Upper) General Chief Complaint: Extremity Problem,Nontraumatic Stated Complaint: Left Hand Pain Time Seen by Provider: 05/23/24 16:30 Source: patient, RN notes reviewed and old records reviewed Mode of arrival: ambulatory Limitations: no limitations History of Present Illness HPI narrative: Patient presents with complaints of left hand pain and swelling. Patient with known history of gout recently finished prednisone. States that his gout symptoms in his knee improved but, gout symptoms in left hand have not. He denies any recent injury or trauma. There is swelling and tenderness to the left hand, limited range of motion to the left 5th finger secondary to swelling and pain. States that he has not been following regularly with his primary care provider. He is aware of elevated blood pressure. He voices no other concerns or complaints today. Related Data Home Medications Medication Instructions Recorded Confirmed amlodipine 10 mg tablet 10 mg PO DAILY 05/18/24 05/23/24 carvedilol 6.25 mg tablet 6.25 mg PO BID 05/18/24 05/23/24 Allergies Allergy/AdvReac Type Severity Reaction Status Date / Time No Known Allergies Allergy Unknown Verified 05/23/24 16:09 Review of Systems Review of Systems: All systems reviewed & are unremarkable except as noted in HPI and below Constitutional: Constitutional: Reports no additional constitutional com plaints ENT: Reports system reviewed and no additional complaints, except as documented Cardiovascular: Cardiovascular: Reports no additional cardiovascular complaints Respiratory: Respiratory: Reports no additional respiratory complaints Gastrointestinal: Gastrointestinal: Reports no additional gastrointestinal complaints Musculoskeletal: Musculoskeletal: Reports no additional musculoskeletal complaints and Reports as per HPI [facility] Past Medical History Medical History Gout HTN (hypertension) Obesity (BMI 30-39.9) Surgical History Surgical History No history of previous surgery Family History Family History Father No known health problems Mother No known health problems Social History Social History Social History: The patient is in [employer]. 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 They have 1 child together and he has 3 other children. He drinks alcohol occasionally and in moderation moderation. He denies illicit substance use. He is interested in stopping tobacco use. It was discussed with him that they peeing and E cigarettes were not unacceptable alternative to smoking. Years smoked: 8 Smoking status: Current every day smoker Tobacco type: cigarettes Alcohol intake: unknown Substance use: never Substance use type: does not use Gender identity (if verbalized by the patient): Male Spiritual care concerns: No Agree to blood products: Yes Comments At the time of my signature, I reviewed and agree with the nursing past medical, surgical, social, and family history. There is no relevant family history pertinent to the patient complaint. Exam Const: General: cooperative, no acute distress, alert and awake Orientation/consciousness: oriented to person, oriented to place and oriented to time HENMT: Head: normal to inspection Resp: Effort & Inspection: normal respiratory effort and able to speak in complete sentences Auscultation: clear to auscultation bilaterally, no crackles, no rales, no rhonchi and no wheezes Cardio: Palpation: normal PMI Rate: regular rate Rhythm: regular rhythm Heart sounds: S1 normal heart sound present and S2 normal heart sound present Neuro: General: oriented to person, oriented to place and oriented to time Cranial nerves: Yes CN's II-XII intact bilaterally Extrem: Left upper extremity: hand tenderness of the 4th digit and of the 5th digit and swelling of the 4th digit and of the 5th digit Psych: Appearance: grossly normal Thought process: Normal thought process present Insight: Good insight present (Psych) Judgement: Good judgement present (Psych) Course Course Level of Care: Express Care Visit Vital Signs Vital signs: Vital Signs Temperature 97.9 F 05/23/24 15:26 Pulse Rate 95 05/23/24 15:26 Respiratory Rate 16 05/23/24 15:26 Blood Pressure 152/116 H 05/23/24 15:26 Pulse Oximetry 98 05/23/24 15:26 Oxygen Delivery Room Air 05/23/24 15:26 Temperature 97.9 F 05/23/24 15:26 Pulse Rate 95 05/23/24 15:26 Respiratory Rate 16 05/23/24 15:26 Blood Pressure 152/116 H 05/23/24 15:26 Pulse Oximetry 98 05/23/24 15:26 Oxygen Delivery Room Air 05/23/24 15:26 Reviewed MDM - Extremity Injury (Upper) MDM Narrative Medical decision making narrative: History and exam are consistent with gout. Negative x-ray. Discussed with patient that it really is sooner than I would like to reinitiate steroid therapy, but I will do a taper given his presenting symptoms. Not comfortable starting medicines such as colchicine or allopurinol without knowing what patient's recent kidney labs look like, especially as blood pressure is uncontrolled. Patient verbalizes understanding. Discharge instructions reviewed with patient, as well as provided in writing per nursing staff. The instructions also include specific and strict return/GO TO THE ER as well as f/u information. All questions have been answered, and the patient deny any further questions with discharge and discharge plan. Some parts of this dictation were generated by voice recognition software and may contain typographical and/or grammatical inaccuracies. Differential Diagnosis Differential diagnosis: Likely sprain and strain of wrist, fracture of wrist and fracture of hand Discharge Plan Discharge Clinical Impression: Elevated blood pressure reading Gout attack Qualifiers: Gout site: hand Gout etiology: unspecified cause Laterality: left Qualified Code(s): M10.9 - Gout, unspecified Patient Disposition: Home, Self-Care Condition: Stable Instructions: Antibiotic Form, Low Purine Diet (ED) Additional Instructions: Take all medications as prescribed. Follow with primary care provider. Blood pressure is very elevated today. It is very important that you address this. Emergency department for any new or worse symptoms Patient Language: Khmer Prescriptions: New methylprednisolone [Medrol (Francesco)] 4 mg tablets,dose pack See Rx Instructions .ROUTE .COMPLEX Qty: 21 0RF Rx Instructions: for 6 days No Action carvedilol 6.25 mg tablet 6.25 mg PO BID amlodipine 10 mg tablet 10 mg PO DAILY prednisone 20 mg tablet 40 mg PO DAILY 5 Days Qty: 10 0RF diclofenac potassium 50 mg tablet 50 mg PO TID 10 Days Qty: 30 0RF benzonatate 200 mg capsule 200 mg PO TID PRN (Reason: cough) Qty: 20 0RF amlodipine 10 mg tablet 10 mg PO DAILY 30 Days Qty: 30 0RF carvedilol 6.25 mg tablet 6.25 mg PO BID 30 Days Qty: 60 0RF Rx Instructions: must administer with a meal/food Follow-up/Referrals: Herman Spencer MD [Primary Care Provider] - 1 Week Stand Alone Forms: Work/School Release IP Time of Disposition: 17:09
== END 2024-05-23 17:28 | disposition home or self-care (01) ==
PROVIDERS: Emergency Provider Nurse Practitioner Family; PCP Emergency Medicine
DX: I10 Essential (primary) hypertension (principal); M10.9 Gout, unspecified; E66.9 Obesity, unspecified; Z68.39 Body mass index [BMI] 39.0-39.9, adult
CPT/HCPCS: 73130; 99213; G0463

== ENCOUNTER 2024-06-07 10:39 | Emergency (ER) | payer OTHER, SELFPAY ==
[2024-06-07 11:28] VITALS: BP 161/100; PULSE 99; RESP 20; TEMP 37.3; O2SAT 100
[2024-06-07 11:30] VITALS: BP 149/100
--- NOTE | 2024-06-07 11:42 | ED.UPPEXIN ---
HPI - Extremity Injury (Upper) General Stated Complaint: Left Hand/Right Foot Pain Time Seen by Provider: 06/07/24 11:43 Source: patient, RN notes reviewed and old records reviewed Mode of arrival: ambulatory Limitations: no limitations History of Present Illness HPI narrative: Patient presents with complaints of gout pain to the left hand. He reports this has been present for a few days. He is also out of his blood pressure medication. Blood pressure is elevated on arrival. He does admit that he has not been following up with his primary as he should. This was discussed at length. He denies any chest pain or shortness of breath. He does admit he has not been following a low purine diet. Denies any injury or trauma. Voices no other concerns or complaints today Related Data Allergies Allergy/AdvReac Type Severity Reaction Status Date / Time No Known Allergies Allergy Unknown Verified 06/07/24 11:08 Review of Systems Review of Systems: All systems reviewed & are unremarkable except as noted in HPI and below Constitutional: Constitutional: Reports no additional constitutional complaints ENT: Reports system reviewed and no additional complaints, except as documented Cardiovascular: Cardiovascular: Reports no additional cardiovascular complaints Respiratory: Respiratory: Reports no additional respiratory complaints Gastrointestinal: Gastrointestinal: Reports no additional gastrointestinal complaints Musculoskeletal: Musculoskeletal: Reports no additional musculoskeletal complaints and Reports as per HPI [facility] Past Medical History Medical History Obesity (BMI 30-39.9) Gout HTN (hypertension) Surgical History Surgical History No history of previous surgery Family History Family History Father No known health problems Mother No known health problems Social History Social History Social History: 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 They have 1 child together and he has 3 other children. He drinks alcohol occasionally and in moderation moderation. He denies illicit substance use. He is interested in stopping tobacco use. It was discussed with him that they peeing and E cigarettes were not unacceptable alternative to smoking. Years smoked: 8 Smoking status: Current every day smoker Tobacco type: cigarettes Alcohol intake: unknown Substance use: never Substance use type: does not use Gender identity (if verbalized by the patient): Male Spiritual care concerns: No Agree to blood products: Yes Comments At the time of my signature, I reviewed and agree with the nursing past medical, surgical, social, and family history. There is no relevant family history pertinent to the patient complaint. Exam Const: General: cooperative, no acute distress, alert and awake Orientation/consciousness: oriented to person, oriented to place and oriented to time HENMT: Head: normal to inspection Resp: Effort & Inspection: normal respiratory effort and able to speak in complete sentences Auscultation: clear to auscultation bilaterally, no crackles, no rales, no rhonchi and no wheezes Cardio: Palpation: normal PMI Rate: regular rate Rhythm: regular rhythm Heart sounds: S1 normal heart sound present and S2 normal heart sound present Neuro: General: oriented to person, oriented to place and oriented to time Cranial nerves: Yes CN's II-XII intact bilaterally Extrem: Hand/finger images:  1. Redness, tenderness, swelling Psych: Appearance: grossly normal Thought process: Normal thought process present Insight: Good insight present (Psych) Judgement: Good judgement present (Psych) Course Course Level of Care: Express Care Visit Vital Signs Vital signs: Reviewed MDM - Extremity Injury (Upper) MDM Narrative Medical decision making narrative: Discussed with patient at that it is not appropriate to keep treating gout with steroids. Importance of following with primary care provider to start more long-term gout treatment was emphasized. Also informed patient that I will give him 30 days of blood pressure medication, but he must follow with his primary care provider to manage his chronic conditions. Discharge instructions reviewed with patient, as well as provided in writing per nursing staff. The instructions also include specific and strict return/GO TO THE ER as well as f/u information. All questions have been answered, and the patient deny any further questions with discharge and discharge plan. Some parts of this dictation were generated by voice recognition software and may contain typographical and/or grammatical inaccuracies. Differential Diagnosis Differential diagnosis: Likely finger sprain and fracture of hand Medical Records Attestation: I reviewed the patient's medical records. Discharge Plan Discharge Clinical Impression: Uncontrolled stage 2 hypertension Gout attack Qualifiers: Gout site: hand Gout etiology: unspecified cause Laterality: left Qualified Code(s): M10.9 - Gout, unspecified Patient Disposition: Home, Self-Care Condition: Stable Instructions: Antibiotic Form, Low Purine Diet (ED) Additional Instructions: It is imperative that you follow-up with your primary care provider. Emergency department for any new or worse symptoms. Take medications as prescribed Patient Language: Indonesian Prescriptions: New carvedilol [Coreg] 6.25 mg tablet 6.25 mg PO BID Qty: 60 0RF Rx Instructions: must administer with a meal/food amlodipine 10 mg tablet 10 mg PO DAILY Qty: 30 0RF methylprednisolone [Medrol (Francesco)] 4 mg tablets,dose pack See Rx Instructions .ROUTE .COMPLEX Qty: 21 0RF Rx Instructions: for 6 days No Action amlodipine 10 mg tablet 10 mg PO DAILY 30 Days Qty: 30 0RF carvedilol 6.25 mg tablet 6.25 mg PO BID 30 Days Qty: 60 0RF Rx Instructions: must administer with a meal/food Follow-up/Referrals: Herman Spencer MD [Primary Care Provider] - Time of Disposition: 11:51
== END 2024-06-07 12:05 | disposition home or self-care (01) ==
PROVIDERS: Emergency Provider Nurse Practitioner Family; PCP Emergency Medicine
DX: M10.9 Gout, unspecified (principal); I10 Essential (primary) hypertension; F17.210 Nicotine dependence, cigarettes, uncomplicated
CPT/HCPCS: 99213; G0463

== ENCOUNTER 2024-06-20 11:23 | Emergency (ER) | payer OTHER, SELFPAY ==
--- NOTE | ~2024-06-20 | CT_ITS ---
EXAMINATION: CT lumbar spine wo con DATE: 06/20/2024 13:26 INDICATION: Right-sided low back pain radiating down the leg. TECHNIQUE: Computed tomography (CT) of the lumbar spine was performed without intravenous contrast. A utomated exposure control and iterative reconstruction technique were employed. The dose-length produ ct was 1249.30 mGy-cm. COMPARISON: None FINDINGS: There is 3 degrees dextrocurvature of lumbar spine. Vertebral body heights are normal. Ther e is mildly decreased disc height at L3-L4 and L4-L5 and moderately decreased disc height at L5-S1. T he following disc levels are specifically discussed: L1-L2: The disc does not extend beyond the endplate margin. There is mild bilateral facet joint osteo arthritis. There is no neural foraminal stenosis. There is no central canal stenosis. L2-L3: The disc is bulging. There is mild left facet joint osteoarthritis. There is no neural foramin al stenosis. There is no central canal stenosis. L3-L4: The disc is bulging. There is mild bilateral facet joint osteoarthritis. There is moderate rig ht and mild left neural foraminal stenosis. There is mild central canal stenosis. L4-L5: The disc is bulging. There is mild bilateral facet joint osteoarthritis. There is mild bilater al neural foraminal stenosis. There is mild central canal stenosis. L5-S1: The disc is bulging. There is mild bilateral facet joint osteoarthritis. There is mild bilater al neural foraminal stenosis. There is mild central canal stenosis. IMPRESSION: 1. Moderate lumbar spondylosis. Reviewed, dictated and finalized at location A. MING POOL SERVICEPERSON
--- NOTE | ~2024-06-20 | XR_ITS ---
EXAMINATION: XR hip RT min 2V DATE: 06/20/2024 13:31 INDICATION: Right hip pain. TECHNIQUE: 2 views of right hip were obtained. COMPARISON: Pelvis radiograph 02/17/2021 FINDINGS: There is an old healed fracture of proximal right femur with internal fixation with antegra de intramedullary nidhi and femoral head/neck screw. No acute fracture. Again seen are chronic tiny rad iopaque foreign bodies near the right hip. There is mild right hip osteoarthritis. IMPRESSION: 1. Mild right hip osteoarthritis. Reviewed, dictated and finalized at location A. OR MANAGEMENT CONSULTANT
[2024-06-20 11:31] VITALS: BP 186/135; PULSE 110; RESP 16; TEMP 37; O2SAT 95
--- NOTE | 2024-06-20 13:05 | ED.EXTPRO ---
HPI - Extremity Problem General Chief complaint: Extremity Problem,Nontraumatic Stated complaint: R hip pain Time Seen by Provider: 06/20/24 13:05 Focused HPI: This is a 43-year-old male that presents to the emergency department for right-sided low back pain. Ongoing over the last couple of days. Reports radiation down the leg. Reports previous surgery on the right hip. GENERAL: Well-appearing, obese, and in no acute distress. HEAD: Normocephalic, atraumatic. CHEST: Clear to auscultation. ?No respiratory distress. HEART: Regular rate and rhythm.? MUSCULOSKELETAL: Strength equal in bilateral upper and lower extremities (5/5) NEURO: ?Alert and oriented x3. Patient screened in triage and initial orders placed.? ?Additional care and disposition to be based upon?diagnostic testing and treatment. Related Data Allergies Allergy/AdvReac Type Severity Reaction Status Date / Time No Known Allergies Allergy Unknown Verified 06/20/24 13:38 Review of Systems Review of Systems: CONSTITUTIONAL: Denies fever MUSCULOSKELETAL: Reports back pain, joint pain, and myalgia. NEUROLOGIC: Denies numbness, or weakness. All systems reviewed & are unremarkable except as noted in HPI and below PMFSH Past Medical History Medical History Obesity (BMI 30-39.9) Gout HTN (hypertension) Surgical History Surgical History No history of previous surgery Family History Family History Father No known health problems Mother No known health problems Social History Social History Social History: The patient is in [employer]. 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 They have 1 child together and he has 3 other children. He drinks alcohol occasionally and in moderation moderation. He denies illicit substance use. He is interested in stopping tobacco use. It was discussed with him that they peeing and E cigarettes were not unacceptable alternative to smoking. Years smoked: 8 Smoking status: Current every day smoker Tobacco type: cigarettes Alcohol intake: unknown Substance use: never Substance use type: does not use Gender identity (if verbalized by the patient): Male Spiritual care concerns: No Agree to blood products: Yes Exam Narrative: GENERAL: Well-appearing, well-nourished, and in no acute distress. HEAD: Normocephalic, atraumatic. EYES: EOMI. CHEST: Clear to auscultation. No respiratory distress. No wheezes rales or rhonchi HEART: Regular rate and rhythm. No murmur heard. Normal peripheral pulses. EXTREMITIES: Normal range of motion. No edema. Strength equal in bilateral lower extremities (5/5) SKIN: Warm, dry, no rash. NEURO: No focal deficits. Alert and oriented x3. PSYCH: Normal mood and affect Course Course Emergency Course: Patient updated on his workup and agrees with plan of care Vital Signs Vital signs: Vital Signs Temperature 98.6 F 06/20/24 11:31 Pulse Rate 110 H 06/20/24 11:31 Respiratory Rate 16 06/20/24 11:31 Blood Pressure 186/135 H 06/20/24 11:31 Pulse Oximetry 95 06/20/24 11:31 Oxygen Delivery Room Air 06/20/24 11:31 Temperature 98.6 F 06/20/24 11:31 Pulse Rate 95 06/20/24 16:04 Respiratory Rate 18 06/20/24 16:04 Blood Pressure 145/96 H 06/20/24 16:04 Pulse Oximetry 99 06/20/24 16:04 Oxygen Delivery Room Air 06/20/24 11:31 MDM - Extremity (Nontraumatic) MDM Narrative Medical decision making narrative: Patient presents to the emergency department for right-sided low back pain. Ongoing over the last several weeks. No recent injuries or trauma. Patient is neurologically intact. Right hip x-ray shows mild osteoarthritis. CT lumbar spine shows moderate lumbar spondylosis. Patient updated on his workup and agrees with plan of care. He is to follow up with primary provider. He was given warnings to return to the ER Patient incidentally hypertensive. He does report he did not take his blood pressure medication today. Blood pressure down trended with his home medications Differential Diagnosis Differential diagnosis: Likely other (Muscle strain, sciatica, osteoarthritis) Imaging Data Radiologist's impression: ITS Impressions Lumbar Spine CT 06/20/24 13:37 IMPRESSION: 1. Moderate lumbar spondylosis. Hip X-Ray 06/20/24 13:47 IMPRESSION: 1. Mild right hip osteoarthritis. Critical Care Time Critical Care Time Critical Care Time: No Discharge Plan Discharge Clinical Impression: Hypertension Qualifiers: Hypertension type: unspecified Qualified Code(s): I10 - Essential (primary) hypertension Sciatica Qualifiers: Laterality: right Qualified Code(s): M54.31 - Sciatica, right side Patient Disposition: Home, Self-Care Condition: Improved Instructions: Sciatica (ED), Hypertension (ED) Additional Instructions: Return to the ER if you experience weakness, numbness, bowel/bladder incontinence, or any other symptoms that are concerning to you Rest, use ice/heat, take anti-inflammatories (Aleve, Ibuprofen, Naproxen, etc) or Tylenol as needed for pain as well as muscle relaxer (Flexeril) as needed for pain. Muscle relaxers can make you drowsy, do not drive if you take this. Take steroid taper as prescribed. It is very important that you take your blood pressure medications daily as prescribed Follow up with your primary care doctor Patient Language: Djiboutian Prescriptions: New cyclobenzaprine 10 mg tablet 10 mg PO TID PRN (Reason: muscle spasm) Qty: 14 0RF methylprednisolone 4 mg tablets,dose pack See Rx Instructions .ROUTE .COMPLEX Qty: 21 0RF Rx Instructions: orally per package directions No Action carvedilol [Coreg] 6.25 mg tablet 6.25 mg PO BID Qty: 60 0RF Rx Instructions: must administer with a meal/food amlodipine 10 mg tablet 10 mg PO DAILY Qty: 30 0RF methylprednisolone [Medrol (Francesco)] 4 mg tablets,dose pack See Rx Instructions .ROUTE .COMPLEX Qty: 21 0RF Rx Instructions: for 6 days amlodipine 10 mg tablet 10 mg PO DAILY 30 Days Qty: 30 0RF carvedilol 6.25 mg tablet 6.25 mg PO BID 30 Days Qty: 60 0RF Rx Instructions: must administer with a meal/food Follow-up/Referrals: Herman Spencer MD [Primary Care Provider] -
[2024-06-20 13:38] VITALS: BP 161/127; PULSE 108; RESP 20; O2SAT 99
[2024-06-20 13:39] VITALS: PULSE 108
[2024-06-20] MEDS: carvediloL 6.25 MG TABLET PO (13:39)
[2024-06-20] MEDS: amLODIPine BESYLATE 10 MG TABLET PO (13:39)
[2024-06-20] MEDS: KETOROLAC 30 MG/ML VIAL (*BKC) IM (13:39)
[2024-06-20] MEDS: ACETAMINOPHEN 500 MG TABLET 1000 MG PO (13:40)
[2024-06-20 16:04] VITALS: BP 145/96; PULSE 95; RESP 18; O2SAT 99
--- OUTSIDE RECORDS SUMMARY | 2024-06-26 18:49 | XMS_ITS | Data Portability ---
Author Organization [facility] Address [address] [facility] [address] [place] [address] Care Team Providers Care Coordinate Measuring Machine Operator Name Role Phone TIFFANIE GEOVANYMAJOR Referring Provider Assessment No assessment recorded. Plan of Treatment Reminders Order Date Submit Date Provider Last Modified By Organization Details Last Modified Time Details Appointments None record ed. Lab None record ed. Referral None record ed. Procedures None record ed. Surgeries None record ed. Imaging None record ed. Medication Orders None record ed. Patient TargetsNo targets recorded. Patient InstructionsNo instructions recorded. Reason for Referral None Reported. Procedures Surgical History Date Name Laterality Status Provider Name and Address Organization Details Recorded Time 10/22/2023 Sleep Study completed Phong De La Rosa [facility]/[employer] 10/23/2023 14:38:36 Imaging Results None recorded. Procedure Notes None recorded. Medical Equipment None Reported. Medications Name Sig Start Date Stop Date Status Note LastModified by Organization Details LastModified Time lisinopril 20 mg tablet TAKE 1 TABLET BY MOUTH ONCE DAILY FOR 30 DAYS active Not Available Not Available No t Available prednisone 20 mg tablet TAKE 2 TABLETS BY MOUTH ONCE DAILY FOR 5 DAYS active Not Available Not Available No t Available meloxicam 7.5 mg tablet TAKE 1 TABLET BY MOUTH ONCE DAILY FOR 14 DAYS active Not Available Not Available No t Available amlodipine 10 mg tablet TAKE 1 TABLET BY MOUTH ONCE DAILY FOR 30 DAYS active Not Available Not Available No t Available colchicine 0.6 mg tablet TAKE 2 TABLETS BY MOUTH NOW AND THEN ONE TABLET 1 HOUR LATER active Not Available Not Available No t Available hydrochlorothia zide 12.5 mg tablet TAKE 1 TABLET BY MOUTH ONCE DAILY FOR 30 DAYS active Not Available Not Available No t Available colchicine 0.6 mg capsule TAKE 2 TABLETS BY MOUTH NOW AND THEN 1 HOUR LATER TAKE ONE TABLET active Not Available Not Available No t Available Vitals Date Recorded Body height Body mass index (BMI) Body weight Provider Name and Address Organization Details Last Updated DateTime 10/22/2023 180.34 cm 33.5 kg/m2 907562.17 g Doug Laboy [place] - [facility] 10/23/2023 09:21:40 Social History None recorded. Functional Status None recorded. Mental Status None recorded. Family History Nothing Reported. Medical History No medical history recorded. Past Encounters Encounter ID Performer Location Encounter Start Date Encounter Closed Date Diagnosis/Indication Diagnosis SNOMED-CT Code Diagnosis ICD10 Code Diagnosis Note [id number] MD [facility], F.C.C.P. [id number] [address] [facility] [phone] [address] 10/22/2023 20:33:26 10/23/2023 14:31:39 Obstructive sleep apnea of adult 4735991520 103 G47.33 Health Concerns Section Related Observation LastModified by Organization Detai ls LastModified Time None Recorded Concern Status LastModified by Organization Details LastModified Time None Recorded Advance Directives Directive None Recorded Payers Encounter Date Sequence Insurance Name Policy Number Policy White Covered Member ID White Member ID Guarantor Name 10/22/2023 [employer] Valerio Leslie [id number] Valerio Leslie Notes Date Note Type Note Provider Name and Address Organization Details Recorded Time 10/22/2023 text/html HST SetupReporte d [email or web address].HST set upHST Device Number 6; Demonstrated to patient how to set up Home Sleep Test Device. The patient was able to return demonstration with out difficulty.; The patient is returning the device the following morning. MD [facility], F.C.C.P. [id number] [address], [place], [address], [facility] 10/24/2023 17:10:54
--- OUTSIDE RECORDS SUMMARY | 2024-06-26 22:14 | XMS_ITS | Encounter Summary ---
Author Organization [facility] Address [address] [place] [address] Care Team Providers Care Basket Filler Name Role Phone Unavailable Primary Care Provider Unavailabl e Encounter Details Date Type Department Care Team (Late st Contact Info) Description 04/10/2020 Lab Requisition [facility] Community Testing [facility] [address] [place] [address] [place] [address] [place] [address] Social History Tobacco Use Types Packs/Day Years Used Date Smoking Tobacco: Never Assessed Sex and Gender Information Value Date Recorded Sex Assigned at Not on file Legal Sex Male 1:28 PM CDT Gender Identity Not on file Sexual Orientation Not on file documented as of this encounter Plan of Treatment Not on file documented as of this encounter Procedures Procedure Name Priority Date/Time Associated Diagnosis Comments SARS-COV-2 PCR [facility] ONLY Routine 04/10/2020 1:38 PM CDT documented in this encounter Visit Diagnoses Not on filedocumented in this encounter
--- OUTSIDE RECORDS SUMMARY | 2024-06-26 22:14 | XMS_ITS | Encounter Summary ---
[facility] Address [address] [place] [address] Care Team Providers Care Lace Cutter Name Role Phone Unavailable Primary Care Provider Unavailabl e Encounter Details Date Type Department Care Team (Late st Contact Info) Description 06/17/2021 2:30 PM TRANSFUSION NURSE Rapid Evaluation [facility] [place] [facility] Community Testing [address] [address] Social History Tobacco Use Types Packs/Day Years Used Date Smoking Tobacco: Never Assessed Sex and Gender Information Value Date Recorded Sex Assigned at Not on file Legal Sex Male 1:28 PM CDT Gender Identity Not on file Sexual Orientation Not on file documented as of this encounter Plan of Treatment Not on file documented as of this encounter Visit Diagnoses Not on filedocumented in this encounter
--- OUTSIDE RECORDS SUMMARY | 2024-06-26 22:14 | XMS_ITS | Encounter Summary ---
Author Organization [facility] Address [address] [place] [address] Care Team Providers Care Process Control Technician Name Role Phone Unavailable Primary Care Provider Unavailabl e Encounter Details Date Type Department Care Team (Late st Contact Info) Description 04/10/2020 2:00 PM CDT Rapid Evaluation [place] [facility] Community Testing [facility] [address] [place] [address] Social History Tobacco Use Types Packs/Day Years [...]
--- OUTSIDE RECORDS SUMMARY | 2024-06-26 22:14 | XMS_ITS | Encounter Summary ---
Author Organization [facility] Address [address] [place] [address] Care Team Providers Care Skylights Assembler Name Role Phone Unavailable Primary Care Provider Unavailabl e Encounter Details Date Type Department Care Team (Late st Contact Info) Description 06/17/2021 Lab Requisition [facility] Community Testing [facility] [address] [place] [address] Pantera Del Castillo MD [address] [place] [address] [place] [address] Social History Tobacco Use Types Packs/Day Years [...]
--- OUTSIDE RECORDS SUMMARY | 2024-06-26 22:14 | XMS_ITS | Clinical Summary ---
Author Organization [facility] Address [address] [place] [address] Care Team Providers Care Pattern Hanger Name Role Phone Unavailable Primary Care Provider Unavailabl e Social History Tobacco Use Types Packs/Day Years Used Date Smoking Tobacco: Never Assessed Sex and Gender Information Value Date Recorded Sex Assigned at Not on file Legal Sex Male 1:28 PM CDT Gender Identity Not on file Sexual Orientation Not on file Plan of Treatment Health Maintenance Due Date Last Done Comments Hepatitis C Virus (HCV) Screening 1981 TdaP Immunization 1981 Hepatitis B Immunization (1 of 3 - 19+ 3-dose series) 2000 Influenza Immunization (#1) 2024 SARS-COV-2 Immunization (2023- season) 2024 Respiratory Syncytial Virus (RSV) Immunization (Adult) (1 - 1-dose 75+ series) 2056 Meningococcal Immunization (ACWY) Aged Out No longer eligible based on patient's age to complete this topic Pneumococcal Immunization Combined Aged Out No longer eligible based on patient's age to complete this topic Rotavirus Immunization Aged Out No lo nger eligible based on patient's age to complete this topic
--- OUTSIDE RECORDS SUMMARY | 2024-06-26 22:14 | XMS_ITS | CONTINUITY OF CARE DOCUMENT ---
Author Name ngoc grossman Address Unknown Organization [facility] Address [id number] [place] [address] [address] [place] [address] Phone [phone] Care Team Providers Care Faculty Research Assistant Name Role Phone Lindsay Acosta MD Unavailable VELIA LEYVA MD Unavailable [phone] VELIA LEYVA MD Unavailable [phone] INSURANCE PROVIDERS Payer name Policy type / Coverage type [place] [employer] [facility] Medicaid 1 [id number]
--- OUTSIDE RECORDS SUMMARY | 2024-06-26 22:15 | XMS_ITS | Referral Summary ---
Author Organization [facility] Address [address] [place] [address] Care Team Providers Care Pilot Captain Name Role Phone Herman Spencer MD Primary Care Provider [phone] Allergies No known active allergies Medications amLODIPine (NORVASC) 10 mg tablet Take 10 mg by mouth daily 01/08/2021 Active hydroCHLOROthia zide (MICROZIDE) 12.5 mg capsule TAKE 1 CAPSULE BY MOUTH ONCE DAILY IN THE MORNING 01/08/2021 Active lisinopriL (PRINIVIL,ZESTR [place]) 30 mg tablet Take 30 mg by mouth daily 01/08/2021 Active naproxen (NAPROSYN) 375 mg tablet TAKE 1 TABLET BY MOUTH EVERY 12 HOURS WITH FOOD OR MILK NEEDED 02/20/2021 Active tiZANidine (ZANAFLEX) 4 mg tablet Take 1 tablet PO HS PRN 30 tablet 02/27/2021 Active Active Problems No known active problems Social History Tobacco Use Types Packs/Day Years Used Date Smoking Tobacco: Every Day Smokeless Tobacco: Never AUDIT-C Answer Date Recorded Q1: How often do you have a drink containing alc ohol? Never 04/24/2021 Average Number of Drinks Not on file 021 Frequency of Binge Drinking Not on file 04/15 Personal Safety Answer Date Recorded Getting School Help Needed Not on file 08/14 Sex and Gender Information Value Date Recorded Sex Assigned at Not on file Legal Sex Male 5:58 PM DATA SOLUTIONS ARCHITECT Gender Identity Not on file Sexual Orientation Not on file Occupation Industry Job Start Date Job End Date [employer] Work[employer] ([employer]) Not on file Not on file Not on tramaine e Last Filed Vital Signs Vital Sign Reading Time Taken Comments Blood Pressure 161/92 05/28/2017 7:56 PM DATA SOLUTIONS ARCHITECT Pulse 78 05/28/2017 7:56 PM DATA SOLUTIONS ARCHITECT Temperature 36.6 ??C (97.8 ??F) 05/28/2017 7:56 PM CS T Respiratory Rate - - Oxygen Saturation 98% 05/28/2017 7:56 PM DATA SOLUTIONS ARCHITECT Inhaled Oxygen Concentration - - Weight 122.5 kg (270 lb) 05/21/2021 1:43 PM DATA SOLUTIONS ARCHITECT Height 177.8 cm (5' 10 ) 05/21/2021 1:43 PM DATA SOLUTIONS ARCHITECT Body Mass Index 38.74 05/21/2021 1:43 PM DATA SOLUTIONS ARCHITECT Plan of Treatment Not on file Insurance [facility] [employer] COMPENSATION GENERIC WORKERS COMPENSATION GENERIC Care Teams Pilot Captain Relationship Specialty Start Date End Date Herman Spencer MD PCP - General Emergency Medicine 02/21/21
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
--- OUTSIDE RECORDS SUMMARY | 2024-06-26 22:15 | XMS_ITS | Encounter Summary ---
Author Organization [facility] Address [address] [place] [address] Care Team Providers Care Assessment Director Name Role Phone Herman Spencer MD Primary Care Provider [phone] Reason for Visit * Reason Onset Date Comments work release 05/17/2021 Encounter Details Date Type Department Care Team (Late st Contact Info) Description 05/17/[address] 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 Per [facility]K patient needs to come in for appt. Patient will see CMK today 05/21/21. Patient scheduled for MRI on 05/22/21 but states he does not want to do at this time. R CONTROL OPERATOR * Telephone Encounter - Monica Burnett MA - 05/20/2021 10:58 AM CST Returned call lvm for patient to contact office. R CONTROL OPERATOR * Telephone Encounter - Randa Rincon - 05/17/2021 10:28 AM CST Pt called and would like a return call regarding a release for work R CONTROL OPERATOR documented in this encounter Plan of Treatment Not on file documented as of this encounter Visit Diagnoses Not on filedocumented in this encounter Care Teams Assessment Director Relationship Specialty Start Date End Date Herman Spencer MD PCP - General Emergency Medicine 02/21/21 documented as of this encounter
--- OUTSIDE RECORDS SUMMARY | 2024-06-26 22:15 | XMS_ITS | Encounter Summary ---
Author Organization [facility] Address [address] [place] [address] Care Team Providers Care Engineering Inspector Name Role Phone Herman Spencer MD Primary Care Provider [phone] Reason for Visit * Reason Onset Date Comments RTW note/injection 03/05/2021 Encounter Details Date Type Department Care Team (Late st Contact Info) Description 03/05/2021 Telephone [facility] Orthopedics and Sports Medicine [address] [place] [address] Phoebe Le GRAILS WEB APPLICATION DEVELOPER [address] [place] [address] [address] [place] [address] RTW note/injection Social History Tobacco Use Types Packs/Day Years Used Date Smoking Tobacco: Every Day Smokeless Tobacco: Never AUDIT-C Answer Date Recorded Q1: How often do you have a drink containing alc ohol? Monthly or less 02/27/2021 Q2: How many drinks containi ng alcohol do you have on a typical day when you are drinking? 1 or 2 02/27/2021 Q3: How often do you have si x or more drinks on one occasion? 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 * Telephone Encounter - Cindi Lopez - 03/05/2021 10:57 AM CDT CMK Patient needs an off work note and would like to schedule a fluoro guided injection for his hip. documented in this encounter Plan of Treatment Not on file documented as of this encounter Visit Diagnoses Not on filedocumented in this encounter Care Teams Engineering Inspector Relationship Specialty Start Date End Date Herman Spencer MD PCP - General Emergency Medicine 02/21/21 documented as of this encounter
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
--- OUTSIDE RECORDS SUMMARY | 2024-06-26 22:15 | XMS_ITS | Encounter Summary ---
Author Organization [facility] Address [address] [place] [address] Care Team Providers Care Tribal Delegate Name Role Phone Herman Spencer MD Primary Care Provider [phone] Reason for Referral * Diagnostic Imaging (Routine) - Closed Specialty Diagnoses / Procedures Referred By Contac t Referred To Contact Diagnoses Bilateral hip pain Procedures XR Bilateral Hips W Pelvis 2 Vw Phoebe Le NP [facility] [address] [place] [address] Phone: tel: fax: [address] [phone] Referral ID Status Reason Start Date Expiration Date Visits Re quested Visits Authorized [id number] Closed 02/21/2021 03/23/2022 1 1 * Diagnostic Imaging (Routine) - Closed Specialty Diagnoses / Procedures Referred By Contac t Referred To Contact Diagnoses Lumbar pain Procedures XR Spine Lumbar W Bending 6 or More Views Phoebe Le NP [facility] [address] [place] [address] Phone: tel: fax: [address] [phone] Referral ID Status Reason Start Date Expiration Date Visits Re quested Visits Authorized [id number] Closed 02/21/2021 03/23/2022 1 1 Reason for Visit * Diagnostic Imaging (Routine) - Closed Specialty Diagnoses / Procedures Referred By Monster t Referred To Contact Diagnoses Bilateral hip pain Procedures XR Bilateral Hips W Pelvis 2 Vw Phoebe Le, NURSE PRACTITIONER PER DIEM [address] [place] [address] Phone: tel: fax: [facility] [address] [place] [phone] Referral ID Status Reason Start Date Expiration Date Visits Re quested Visits Authorized [id number] Closed 02/21/2021 03/23/2022 1 1 Encounter Details Date Type Department Care Team (Latest Contact Info) Description 02/27/2021 10:01 AM CDT - 02/27/2021 11:59 PM CDT Hospital Encounter [facility] Di[facility] Imaging [address] [place] [phone] Lumbar pain; Bilateral hip pain Discharge Disposition: Discharge to home or self care Social History Tobacco Use Types Packs/Day Years [...] on file Legal Sex Male 5:58 PM RN PSYCH Gender Identity Not on file Sexual Orientation Not on file Occupation Industry Job Start Date Job End Date [employer]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[employer]) Not on file Not on file Not on tramaine e documented as of this encounter Medications at Time of Discharge amLODIPine (NORVASC) 10 mg tablet Take 10 mg by mouth daily 01/08/2021 hydroCHLOROthiazi de (MICROZIDE) 12.5 mg capsule TAKE 1 CAPSULE BY MOUTH ONCE DAILY IN THE MORNING 01/08/2021 lisinopriL (PRINIVIL,ZESTRIL ) 30 mg tablet Take 30 mg by mouth daily 01/08/2021 naproxen (NAPROSYN) 375 mg tablet TAKE 1 TABLET BY MOUTH EVERY 12 HOURS WITH FOOD OR MILK NEEDED 02/20/2021 tiZANidine (ZANAFLEX) 4 mg tablet Take 1 tablet PO HS PRN 30 tablet 02/27/2021 documented as of this encounter Discharge Disposition Disposition Code Departure Means Destination Discharge to home or self care documented in this encounter Plan of Treatment Not on file documented as of this encounter Procedures Procedure Name Priority Date/Time Associated Diagnosis Comments XR HIPS BILATERAL W PELVIS 2 VIEW Schedule Routine, Read Routine (OP Routine) 02/27/2021 10:22 AM CDT Bilateral hip pain XR SPINE LUMBAR W BENDING 6 OR MORE VIEWS Schedule Routine, Read Routine (OP Routine) 02/27/2021 10:22 AM CDT Lumbar pain documented in this encounter Results * XR Bilateral Hips W Pelvis 2 Vw (02/27/2021 10:22 AM CDT) Anatomical Region Laterality Modality Lower Extremities, Hip, Pelvis Bilateral C omputed Radiography 02/27/2021 10:5 9 AM CDT Narrative 02/27/2021 11:03 AM CDT EXAM DESCRIPTION: ?? XR HIPS BILATERAL 2 VIEWS W PELVIS REASON FOR STUDY: ?? pain ??Pain in low back and left groin since rolling leg off curb on 02-16-21 ?? TECHNIQUE: ?? AP radiograph of the pelvis was obtained. ??Frogleg views of each hip were obtained. ??AP radiograph of the right hip to include the entirety of the prosthesis was obtained. COMPARISON: ?? None available FINDINGS: please see separately dictated lumbar spine radiographs for comments on that region. Postoperative changes of intramedullary nidhi placement and dynamic hip screw are noted. There is no significant lucency surrounding the metallic components. ??Prominent heterotopic bone formation is noted. Joint space narrowing and mild marginal osteophyte formation of the right hip is noted. ?? Superior and inferior pubic rami appear intact. ??Joint space narrowing of the left hip is noted as well, mild-moderate. ??There is mild marginal osteophyte formation. ??No acute fracture is identified. ??No lytic or blastic lesions are seen. IMPRESSION: ?? Mild-moderate osteoarthritic changes of the bilateral hips. THIS IS AN ELECTRONICALLY VERIFIED FINAL REPORT 02/27/2021 11:03 AM - Electronically signed by Luke Foote M.D. AT D: ??02/27/2021 11:03 AM T: Report ID: [id number] Reading Location: ??[id number] Procedure Note Luke Foote MD - 02/27/2021 EXAM DESCRIPTION: XR HIPS BILATERAL 2 VIEWS W PELVIS REASON FOR STUDY: pain Pain in low back and left groin since rollingleg off curb on 02-16-21 TECHNIQUE: AP radiograph of the pelvis was obtained. Frogleg views ofeach hip were obtained. AP radiograph of the right hip to include the entiretyof the prosthesis was obtained. COMPARISON: None available FINDINGS: please see separately dictated lumbar spine radiographs for comments onthat region. Postoperative changes of intramedullary nidhi placement and dynamichip screw are noted. There is no significant lucency surrounding the metallic components. Prominent heterotopic bone formation is noted. Joint space narrowing and mild marginal osteophyte formation of the right hip isnoted. Superior and inferior pubic rami appear intact. Joint space narrowing ofthe left hip is noted as well, mild-moderate. There is mild marginalosteophyte formation. No acute fracture is identified. No lytic or blastic lesionsare seen. IMPRESSION: Mild-moderate osteoarthritic changes of the bilateralhips. THIS IS AN ELECTRONICALLY VERIFIED FINAL REPORT 02/27/2021 11:03 AM - Electronically signed by Luke Foote M.D. AT T: Report ID: [id number] Reading Location: [id number] Phoebe Le NURSE PRACTITIONER PER DIEM IMG XR PROCEDURES Final Res ult * XR Spine Lumbar W Bending 6 or More Views (02/27/2021 10:22 AM CDT) Anatomical Region Laterality Modality Spine N/A Computed Radiogr aphy 02/27/2021 10:3 6 AM CDT Narrative 02/27/2021 10:38 AM CDT EXAM DESCRIPTION: ?? XR SPINE LUMBAR W BENDING 6 OR MORE VIEWS REASON FOR STUDY: ?? pain ??Pain in low back and left groin since rolling leg off curb on 02-16-21 ?? TECHNIQUE: ?? AP, lateral, lateral flexion, lateral extension, right posterior oblique, left posterior oblique radiographs of the lumbar spine were obtained. COMPARISON: ?? 05/28/2017 FINDINGS: There are 5 lumbar type spx-uur-[id number] vertebral bodies. ??Sacroiliac joints appear unremarkable. ??Customary mild lumbar lordosis is noted. ??Vertebral body height appears well maintained. ??Intervertebral disc heights appear well maintained. ??There is no evidence of instability on flexion and extension lateral radiographs. ??There is no evidence of spondylolysis. IMPRESSION: ?? Essentially unremarkable radiographs of the lumbar spine. THIS IS AN ELECTRONICALLY VERIFIED FINAL REPORT 02/27/2021 10:38 AM - Electronically signed by Luke Foote M.D. AT D: ??02/27/2021 10:38 AM T: Report ID: [id number] Reading Location: ??[id number] Procedure Note Luke Foote MD - 02/27/2021 EXAM DESCRIPTION: XR SPINE LUMBAR W BENDING 6 OR MORE VIEWS REASON FOR STUDY: pain Pain in low back and left groin since rollingleg off curb on 02-16-21 TECHNIQUE: AP, lateral, lateral flexion, lateral extension, rightposterior oblique, left posterior oblique radiographs of the lumbar spine wereobtained. COMPARISON: 05/28/2017 FINDINGS: There are 5 lumbar type nnu-dhz-gffsgby vertebral bodies. Sacroiliacjoints appear unremarkable. Customary mild lumbar lordosis is noted. Vertebralbody height appears well maintained. Intervertebral disc heights appear well maintained. There is no evidence of instability on flexion and extension lateral radiographs. There is no evidence of spondylolysis. IMPRESSION: Essentially unremarkable radiographs of the lumbar spine. THIS IS AN ELECTRONICALLY VERIFIED FINAL REPORT 02/27/2021 10:38 AM - Electronically signed by Luke Foote M.D. AT T: Report ID: [id number] Reading Location: [id number] Phoebe Le NP IMG XR PROCEDURES Final Res ult documented in this encounter Visit Diagnoses Diagnosis Lumbar pain Lumbago Bilateral hip pain Pain in joint, pelvic region and thigh documented in this encounter Care Teams Tribal Delegate Relationship Specialty Start Date End Date Herman Spencer MD PCP - General Emergency Medicine 02/21/21 documented as of this encounter
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
--- OUTSIDE RECORDS SUMMARY | 2024-06-26 22:15 | XMS_ITS | Encounter Summary ---
Author Organization [facility] Address [address] [place] [address] Care Team Providers Care Reading Instructor Name Role Phone Herman Spencer MD Primary Care Provider [phone] Encounter Details Date Type Department Care Team (Late st Contact Info) Description 03/05/2021 Telephone [facility] Orthopedics and Sports Medicine [address] [facility] [address] [place] [address] [place] [address] [place] [address] [address] [place], [place] [id number] Social History Tobacco Use Types Packs/Day Years [...] on file Legal Sex Male 5:58 PM TECHNICAL ASSISTANCE CONSULTANT Gender Identity Not on file Sexual Orientation Not on file Occupation Industry Job Start Date Job End Date [employer]

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
--- OUTSIDE RECORDS SUMMARY | 2024-06-26 22:15 | XMS_ITS | Encounter Summary ---
Author Organization [facility] Address [address] [place] [address] Care Team Providers Care Boarder Machine Name Role Phone Herman Spencer MD Primary Care Provider [phone] Reason for Referral * Diagnostic Imaging (Routine) - Closed Specialty Diagnoses / Procedures Referred By Contac t Referred To Contact Diagnoses Injury of left hip, initial encounter Procedures FL Fluoro Guided Injection Hip Left Phoebe Le NP [facility] [facility] [address] [address] [place] [id number] Phone: tel: fax: [address] [phone] Referral ID Status Reason Start Date Expiration Date Visits Re quested Visits Authorized [id number] Closed 03/01/2021 03/31/2022 1 1 Reason for Visit * Diagnostic Imaging (Routine) - Closed Specialty Diagnoses / Procedures Referred By Contac t Referred To Contact Diagnoses Injury of left hip, initial encounter Procedures FL Fluoro Guided Injection Hip Left Phoebe Le NP [facility] [address] [place] [address] [place] [id number] Phone: tel: fax: [address] [phone] Referral ID Status Reason Start Date Expiration Date Visits Re quested Visits Authorized [id number] Closed 03/01/2021 03/31/2022 1 1 Encounter Details Date Type Department Care Team (Latest Contact Info) Description 03/11/2021 12:50 PM CDT - 03/11/2021 11:59 PM CDT Hospital Encounter [facility] Diagnostic Imaging [address] [place] [id number] Injury of left hip, initial encounter (Primary Dx) Discharge Disposition: Discharge to home or self [...] on file 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 FL FLUORO GUIDED INJECTION HIP LEFT REASON FOR STUDY: ?? left hip pain ??Work injury x 02/16/21, pain to left hip since ?? COMPARISON: ?? Left hip radiographs 02/27/2021 FLUOROSCOPY TIME/IMAGE COUNT: ??Fluoro Time: ??0.6 minutes Image Count: ??1 TECHNIQUE/FINDINGS: Risk, benefits, and alternatives of the procedure were explained to the patient and informed consent was obtained. ??The area was prepped and draped in the usual sterile fashion. ??A ??22 gauge 3 inch spinal needle was directed into the hip joint space and a small amount of ??Omnipaque 240 was injected to confirm intra-articular placement. ??40 mg of Kenalog and ??5 mL of 1% lidocaine was injected without complication. ??The stylet recesses replaced and the needle was removed. ??Hemostasis was achieved and a sterile bandage was placed. No immediate complication. IMPRESSION: ??Successful ??left hip steroid injection. THIS IS AN ELECTRONICALLY VERIFIED FINAL REPORT 03/11/2021 2:41 PM - Electronically signed by Lee Khan M.D. D: ??03/11/2021 2:41 PM T: Report ID: [id number] Reading Location: ??[id number] Procedure Note Lee Khan MD - 03/11/2021 EXAM DESCRIPTION: FL FLUORO GUIDED INJECTION HIP LEFT REASON FOR STUDY: left hip pain Work injury x 02/16/21, pain to left hip since COMPARISON: Left hip radiographs 02/27/2021 FLUOROSCOPY TIME/IMAGE COUNT: Fluoro Time: 0.6 minutes Image Count: 1 TECHNIQUE/FINDINGS: Risk, benefits, and alternatives of the procedure were explained to the patient and informed consent was obtained. The area was prepped anddraped in the usual sterile fashion. A 22 gauge 3 inch spinal needle was directedinto the hip joint space and a small amount of Omnipaque 240 was injected to confirm intra-articular placement. 40 mg of Kenalog and 5 mL of 1%lidocaine was injected without complication. The stylet recesses replaced and the needle was removed. Hemostasis was achieved and a sterile bandage wasplaced. No immediate complication. IMPRESSION: Successful left hip steroid injection. THIS IS AN ELECTRONICALLY VERIFIED FINAL REPORT 03/11/2021 2:41 PM - Electronically signed by Lee Khan M.D. AG T: Report ID: [id number] Reading Location: [place] [address] Phoebe Le SLABBING MACHINE OPERATOR IMG FLUOROSCOPY PROCEDURES Final Result documented in this encounter Visit Diagnoses Diagnosis Injury of left hip, initial encounter- Primary documented in this encounter Administered Medications Inactive Administered Medications - up to 3 most recent administrations Medication Order MAR Action Action Date Dose Rate Site iohexoL (OMNIPAQUE) 240 mg iodine/mL injection solution 50 mL 50 mL, intra-articular, Once in imaging, contrast, Starting on Thu03/11/21 at 1342, For 1 doseIndications:Injury of left hip, initial encounter Contrast Given 03/11/2021 1:50 PM CDT 3 mL lidocaine (XYLOCAINE) 10 mg/mL (1 %) injection 200 mg 200 mg (20 mL), subcutaneous, Once, On Thu03/11/21 at 1500, For 1 dose, Indications: Administration of Local AnesthesiaIndications:Admi nistration of Local Anesthesia Given 03/11/2021 1:43 PM CDT 2 mL Other (Comment) triamcinolone (KENALOG) 40 mg/mL injection 40 mg 40 mg, intramuscular, Once, On Thu03/11/21 at 1500, For 1 doseIndications:Injury of left hip, initial encounter Given 03/11/2021 1:43 PM CDT 40 mg Other (Comment) documented in this encounter Care Teams Boarder Machine Relationship Specialty Start Date End Date Herman Spencer MD PCP - General Emergency Medicine 02/21/21 documented as of this encounter
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
--- OUTSIDE RECORDS SUMMARY | 2024-06-26 22:15 | XMS_ITS | Encounter Summary ---
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 This is per his manager rn case Farida Henao. Claim # [id number]. Was unable to leave message as no voice mail has been set up at this time. documented in this encounter Plan of Treatment Not on file documented as of this encounter Visit Diagnoses Not on filedocumented in this encounter Care Teams Oysterman Relationship Specialty Start Date End Date Herman Spencer MD PCP - General Emergency Medicine 02/21/21 documented as of this encounter
== END 2024-06-20 16:56 | disposition home or self-care (01) ==
PROVIDERS: Emergency Provider Physician Assistant; PCP Emergency Medicine
DX: M54.41 Lumbago with sciatica, right side (principal); I10 Essential (primary) hypertension; E66.9 Obesity, unspecified; Z68.38 Body mass index [BMI] 38.0-38.9, adult; M10.9 Gout, unspecified; F17.210 Nicotine dependence, cigarettes, uncomplicated; M47.816 Spondylosis without myelopathy or radiculopathy, lumbar region; M16.11 Unilateral primary osteoarthritis, right hip
CPT/HCPCS: 72131; 73502; 96372; 99284; A9270; J1885

== ENCOUNTER 2024-07-08 18:25 | Emergency (ER) | payer MEDICAID, SELFPAY ==
--- OUTSIDE RECORDS SUMMARY | 2024-07-08 18:27 | XMS_ITS | Data Portability ---
Author Organization [facility] Address [address] [facility] [address] [place] [address] Care Team Providers Care Document Control Associate Name Role Phone TIFFANIE GEOVANYMAJOR Referring Provider [phone] Assessment No assessment recorded. Plan of Treatment [...] Sleep Study completed Phong De La Rosa [facility] 10/23/2023 14:38:36 Imaging Results None recorded. Procedure [...] Updated DateTime 10/22/2023 180.34 cm 33.5 kg/m2 088620.17 g Doug Laboy [place] - CS/KV/SMSC 10/23/2023 09:21:40 Social History None recorded. Functional Status None recorded. Mental Status None recorded. Family History Nothing Reported. Medical History No medical history recorded. Past Encounters Encounter ID Performer Location Encounter Start Date Encounter Closed Date Diagnosis/Indication Diagnosis SNOMED-CT Code Diagnosis ICD10 Code Diagnosis Note [id number] MD [facility], F[facility] [id number] [address] [facility] [phone] [address] 10/22/2023 20:33:26 10/23/2023 14:31:39 Obstructive sleep apnea of adult 0663276588 103 G47.33 Health Concerns Section Related Observation LastModified by Organization Detai ls LastModified Time None Recorded Concern Status LastModified by Organization Details LastModified Time None Recorded Advance Directives Directive None Recorded Payers Encounter Date Sequence Insurance Name Policy Number Policy White Covered Member ID White Member ID Guarantor Name 10/22/2023 [employer]MENT Valerio Leslie [id number] Valerio Leslie Notes Date Note Type Note Provider Name and Address Organization Details Recorded Time 10/22/2023 text/html HST SetupReporte d bypatient.HST set upHST Device Number 6; Demonstrated to patient how to set up Home Sleep Test Device. The patient was able to return demonstration with out difficulty.; The patient is returning the device the following morning. MD [facility] [id number] [address] [address], [place], [address], [facility] C[facility]/S[facility] 10/24/2023 17:10:54
[2024-07-08 18:43] VITALS: BP 128/88; PULSE 95; RESP 20; TEMP 35.9; O2SAT 100
[2024-07-08 19:14] LABS: Glucose Point of Care 148 mg/dl (65-105)
--- NOTE | 2024-07-08 19:53 | ED_ITS ---
HPI - Extremity Problem General Chief complaint: Extremity Problem,Nontraumatic Stated complaint: gout/arthritis flare Time Seen by Provider: 07/08/24 19:51 Source: patient Mode of arrival: ambulatory Limitations: no limitations History of Present Illness HPI Narrative: 43 YEARS OLD MALE, HISTORY OF GOUTY ARTHRITIS WITH INTERMITTENT FLARE UP, STARTED HAVING PAIN AT THE ANKLE BILATERALLY AND THE LEFT HIP WHICH IS CONSISTENT WITH HIS HISTORY OF GOUTY ARTHRITIS. PATIENT WAS SEEN BY HIS FAMILY PHYSICIAN RECENTLY AND STARTED ON THE NAMENDA SEEN FOR 4 DAYS WITH SLIGHT IMPROVEMENT. PATIENT DENIES ANY FEVER OR CHILLS OR NAUSEA OR VOMITING OR RECENT TRAUMA. 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 They have 1 child together and he has 3 other children. He drinks alcohol occasionally and in moderation moderation. He denies illicit substance use. He is interested in stopping tobacco use. It was discussed with him that they peeing and E cigarettes were not unacceptable alternative to smoking. Years smoked: 8 Smoking status: Current every day smoker Tobacco type: cigarettes Alcohol intake: unknown Substance use: never Substance use type: does not use Gender identity (if verbalized by the patient): Male Spiritual care concerns: No Agree to blood products: Yes Exam Narrative: GENERAL APPEARANCE: WELL-DEVELOPED, WELL-NOURISHED SKIN: NORMAL COLOR HEAD: NORMOCEPHALIC, NONTRAUMATIC EYES: CLEAR CONJUNCTIVA ENT: OROPHARYNX NORMAL, EARS NORMAL, NOSE NORMAL NECK: SUPPLE, NONTENDER CHEST AND RESPIRATORY: AIRWAY PATENT, NO RESPIRATORY DISTRESS, NO ACCESSORY MUSCLE USE HEART: REGULAR RATE/RHYTHM ABDOMEN: SOFT, NONTENDER, NO ORGANOMEGALY, QUIET BOWEL SOUNDS VASCULAR: NORMAL PERIPHERAL PULSES, NORMAL CAPILLARY REFILL. MUSCULOSKELETAL: DIFFUSE TENDERNESS AND SWELLING OF ANKLES BILATERALLY, SLIGHTLY WARM, NEW SLIGHTLY LIMITED RANGE OF MOTION NEUROLOGIC: ALERT AND ORIENTED ?3, ORTHOPEDIC DENTIST IS NORMAL TESTED, NO GROSS MOTOR DEFICIT Course Vital Signs Vital signs: Vital Signs Temperature 35.9 C L 07/08/24 18:43 Pulse Rate 95 07/08/24 18:43 Respiratory Rate 20 07/08/24 18:43 Blood Pressure 128/88 07/08/24 18:43 Pulse Oximetry 100 07/08/24 18:43 Oxygen Delivery Room Air 07/08/24 18:43 Temperature 36.3 C L 07/08/24 20:07 Pulse Rate 88 07/08/24 20:07 Respiratory Rate 20 07/08/24 20:07 Blood Pressure 119/89 07/08/24 20:07 Pulse Oximetry 97 07/08/24 20:07 Oxygen Delivery Room Air 07/08/24 18:43 MDM - Extremity (Nontraumatic) MDM Narrative Medical decision making narrative: DIFFERENTIAL DIAGNOSIS INCLUDE ARTHRALGIA, DID GOUTY ARTHRITIS FLARE. MY PLAN TO DISCHARGE PATIENT ON PREDNISONE, DICLOFENAC AND OMEPRAZOLE Lab Data Labs: Lab Results 07/08/24 Range/Units 19:12 POC Capillary Glucose 148 H (65-105) mg/dl Critical Care Time Critical Care Time Critical Care Time: No Discharge Plan Discharge Clinical Impression: Gouty arthritis Patient Disposition: Home, Self-Care Condition: Stable Instructions: Gout (ED) Additional Instructions: RETURN IF SYMPTOMS ARE WORSENING , CALL YOUR FAMILY PHYSICIAN FOR APPOINTMENT, TAKE TYLENOL NEEDED FOR ACHES AND PAIN, CONTINUE HOME MEDICATIONS., KEEP FOOT ELEVATED, AVOID PUTTING WITH ON YOUR FEET MUCH HE CAME, CONTINUE ALLOPURINOL Patient Language: Croatian Prescriptions: New prednisone 20 mg tablet 40 mg PO DAILY 5 Days Qty: 10 0RF diclofenac sodium 75 mg tablet,delayed release (DR/EC) 75 mg PO BID PRN (Reason: pain) Qty: 10 0RF omeprazole 20 mg capsule,delayed release(DR/EC) 20 mg PO DAILY Qty: 14 0RF No Action carvedilol [Coreg] 6.25 mg tablet 6.25 mg PO BID Qty: 60 0RF Rx Instructions: must administer with a meal/food amlodipine 10 mg tablet 10 mg PO DAILY Qty: 30 0RF methylprednisolone [Medrol (Francesco)] 4 mg tablets,dose pack See Rx Instructions .ROUTE .COMPLEX Qty: 21 0RF Rx Instructions: for 6 days amlodipine 10 mg tablet 10 mg PO DAILY 30 Days Qty: 30 0RF carvedilol 6.25 mg tablet 6.25 mg PO BID 30 Days Qty: 60 0RF Rx Instructions: must administer with a meal/food cyclobenzaprine 10 mg tablet 10 mg PO TID PRN (Reason: muscle spasm) Qty: 14 0RF methylprednisolone 4 mg tablets,dose pack See Rx Instructions .ROUTE .COMPLEX Qty: 21 0RF Rx Instructions: orally per package directions Follow-up/Referrals: Herman Spencer MD [Primary Care Provider] -
[2024-07-08 20:07] VITALS: BP 119/89; PULSE 88; RESP 20; TEMP 36.3; O2SAT 97
[2024-07-08] MEDS: HYDROcodone/acetaminophen (*CRX) 5-325 MG TABLET 1 TAB PO (20:51)
[2024-07-08] MEDS: INDOMETHACIN 25 MG CAPSULE 75 MG PO (20:53)
[2024-07-08] MEDS: COLCHICINE 0.6 MG TABLET 1.2 MG PO (21:00)
== END 2024-07-08 21:30 | disposition home or self-care (01) ==
PROVIDERS: Emergency Provider Emergency Medicine; PCP Emergency Medicine
DX: M10.9 Gout, unspecified (principal); E66.9 Obesity, unspecified; I10 Essential (primary) hypertension; F17.210 Nicotine dependence, cigarettes, uncomplicated; Z68.41 Body mass index [BMI] 40.0-44.9, adult
CPT/HCPCS: 82948; 96372; 99283; A9270

== ENCOUNTER 2025-02-20 23:39 | Emergency (ER) | payer BC, SELFPAY ==
--- OUTSIDE RECORDS SUMMARY | 2022-12-10 11:54 | XMS_ITS | Continuity of Care Document ---
Author Organization [employer] [facility] Address [address] [place] [address] [address] [place] [address] Phone Care Team Providers Care Instructional Paraprofessional Name Role Phone Lul Mei PT Unavailable Unavailable Procedures Procedure Date Therapeutic Activities Neuromuscular Re-Ed Therapeutic Exercise Manual Therapy Therapeutic Activities Neuromuscular Re-Ed Therapeutic Exercise Manual Therapy Therapeutic Activities Neuromuscular Re-Ed Therapeutic Exercise Manual Therapy Therapeutic Activities Neuromuscular Re-Ed Therapeutic Exercise Manual Therapy Therapeutic Activities Neuromuscular Re-Ed Therapeutic Exercise Manual Therapy Therapeutic Activities Neuromuscular Re-Ed Therapeutic Exercise Manual Therapy PT Evaluation Moderate Complexity Therapeutic Activities Neuromuscular Re-Ed Therapeutic Exercise Manual Therapy Therapeutic Activities Progress Note Therapeutic Exercise Neuromuscular Re-Ed Neuromuscular Re-Ed Therapeutic Activities Neuromuscular Re-Ed Therapeutic Activities Progress Note Therapeutic Activities Neuromuscular Re-Ed Therapeutic Exercise Manual Therapy Therapeutic Activities Neuromuscular Re-Ed Manual Therapy Therapeutic Activities Neuromuscular Re-Ed Manual Therapy Manual Therapy Neuromuscular Re-Ed Therapeutic Activities Manual Therapy Neuromuscular Re-Ed Therapeutic Activities Manual Therapy Therapeutic Activities Hot or Cold Pack Manual Therapy Therapeutic Exercise Neuromuscular Re-Ed Therapeutic Activities Hot or Cold Pack Neuromuscular Re-Ed Therapeutic Activities Therapeutic Activities Hot or Cold Pack Manual Therapy Therapeutic Exercise Neuromuscular Re-Ed Manual Therapy Therapeutic Exercise Therapeutic Activities Neuromuscular Re-Ed Hot or Cold Pack Therapeutic Exercise Neuromuscular Re-Ed Therapeutic Activities Hot or Cold Pack Manual Therapy Neuromuscular Re-Ed PT Evaluation Low Complexity Therapeutic Exercise Advance Directives Directive Yes / No Effective Date File Name No Information Encounters Encounter Description Practice Location Reason(s) For Visit Diagnoses Date Provider Providers [facility] on [facility], [place], [place], [id number], tel:[phone] [place] No Information 3 Hamida Gan [facility], [place], [place], [id number], [place] tel:[phone] [place] No Information Kranthi-2 0-202 3 [place] Rusty. . Referring Provider: Josafat Antunez [address], [place], [address]. tel:[phone] [facility], [address] [place] [address] [address], [place], [place], [id number], [place] tel:[phone] [place] No Information Kranthi-1 5-202 3 [place] Rusty. . Referring Provider: Clinton Angeles [facility], [place], [address]. tel:[phone], [place], [place], [id number], [place] tel:[phone] [place] No Information Kranthi-1 3-202 3 [place] Shan. . Referring Provider: Clinton Angeles [facility] [address], [place], [address]. tel:[phone] [place] [address], [address] [place] [address] [address], [place], [place], [id number], [place] tel:[phone] [place] No Information Kranthi-0 8-202 3 Dellamano Lul. . Referring Provider: Josafat Antunez [address], [place], [address]. tel:[phone] [place], [place] [address], [place], [place], [id number], [place] tel:[phone] [place] No Information Kranthi-0 2-202 3 Dellamano Lul. . Referring Provider: Clinton Angeles [facility] [address], [place], [address]. tel:[phone], [place], [place], [id number], [place] tel:[phone] [place] No Information May-2 3-202 3 Dellamano Lul. . Referring Provider: Clinton Angeles [facility], [place], [address]. tel:[phone] [place] [address], [place], [place], [address], [place] tel:[phone] [place] No Information 3 Dellamano Lul. . Referring Provider: Josafat Antunez, [address] [facility] [address], [place], [address]. tel:[phone] [facility], [place], [place], [address], [place] tel:[phone] [place] No Information 1 Lehnen Patti. . Referring Provider: Phoebe Le [address] [place] [address] [address], [place], [address] . tel:[phone] [facility] [address], [place], [place], [id number], [place] tel:[phone] [place] No Information 1 Lehnen Patti. . Referring Provider: Phoebe Le [address] [place] [address] [address], [place], [address] . tel:[phone] [facility] [address], [place], [place], [id number], [place] tel:[phone] [place] No Information 0 1 Lehnen Patti. . Referring Provider: Phoebe Le [facility] [address], [place], [address] . tel:[phone] [facility] [address], [place], [place], [address], [place] tel:[phone] [place] No Information 1 Lehnen Patti. . Referring Provider: Phoebe Le [facility] [address], [place], [address] . tel:[phone] [facility], [place], [place], [id number], [place] tel:[phone] [place] No Information 2 0- 1 Lehnen Patti. . Referring Provider: Mary [facility] [address], [place], [address] . tel:[phone], [place], [place], [address], tel:[phone] [place] No Information Oct-1 9-202 1 Lehnen Patti. . Referring Provider: Mary [facility] [address], [place], [address] . tel:[phone], [place], [place], [address], [place] tel:[phone] [place] No Information Mar-1 5- 1 Lehnen Patti. . Referring Provider: [facility] [address], [place], [address] . tel:[phone] [place] [address] [address], [place], [place], [address], [place] tel:[phone] [place] No Information Mar-1 3-202 1 Lehnen Patti. . Referring Provider: [facility] [address], [place], [address] . tel:[phone], [place], [place], [address], [place] tel:[phone] [place] No Information Oct-0 8-202 1 Lehnen Patti. . Referring Provider: [facility] [address], [place], [address] . tel:[phone] [place] [address], [place], [place], [address], [place] tel:[phone] [place] No Information Oct-0 6-202 1 Lehnen Patti. . Referring Provider: [facility] [address], [place], [address] . tel:[phone] [facility] [address] [place] [address], [id number], tel:[phone] [place] No Information 1 Lehnen Patti. . Referring Provider: [facility] [address], [place], [address] . tel:[phone], [id number], tel:[phone] [place] No Information Sep-2 1 Lehnen Patti. . Referring Provider: [facility] [address], [place], [address] . tel:[phone], [id number], tel:[phone] [place] No Information Feb-2 1 Enrique Butler. [address] [place] [address], [address], [place], [facility], . tel:[phone] Referring Provider: [facility] [address], [place], [address] . tel:[phone] [facility] [address] [place], [place] [address]ney[address] [place] [address], [id number], tel:[phone] [place] No Information Feb-2 1 Lehnen Patti. . Referring Provider: [facility] [address], [place], [address] . tel:[phone] Igor [address] [place] [address], [id number], tel:[phone] [place] No Information Feb- 1 Lehnen Patti. . Referring Provider: [facility] [address], [place], [address] . tel:[phone] Family History Family Member Type Diagnosis Age At Onset No Information Payers Payer name Insurance type Covered democrat ID Authorchiquisa reagan(s) [employer] EPO WC SP WC [id number] Social History Type Description Quantity Date Captured Comments Sex Male Smoking Status No Information Chief Complaint And Reason For Visit No Information Reason For Referral Reason For Referral No Information Plan Of Treatment Date Type Action Status Goal Tobacco cessation counseling completed Goal Tobacco Cessation Counseling completed Goal Tobacco cessation counseling completed Goal Tobacco Cessation Counseling completed Referral Ordered: Referrals: Specialist. Evaluate and Treat (related to Adjustment disorder with depressed mood) ordered Referral Ordered: Depression: Depression management program timeframe: 1 Day. (related to Depression) ordered Referral Ordered: Clinical Psychology (related to Depression) ordered Referral Ordered: Weight management: Referral to physician timeframe: 1 Month. (related to Overweight) ordered Referral Ordered: PCP timeframe: 1 week. (related to Overweight) ordered Referral Ordered: PCP timeframe: 1 week. (related to Overweight) ordered Referral Ordered: Weight management: Referral to physician timeframe: 1 Month. (related to Overweight) ordered History Of Present Illness Encounter Date Complaint History Of Prese nt Illness No Information Functional Status Date Functional Assessmen t No Information Instructions Date Instruction Additional Infor mation No Information Assessments Type Assessment Date No Information Patient Care Teams Name Effective Dates (start - stop) Status Members No Information
--- NOTE | ~2025-02-20 | XR_ITS ---
EXAMINATION: XR foot LT min 3V DATE: 02/21/2025 00:42 INDICATION: Left foot pain on medial side. History of gout. TECHNIQUE: 3 images of the left foot were obtained. COMPARISON: None. FINDINGS: Mild joint space narrowing in the first metatarsophalangeal joint with adjacent soft tissue swelling. No fracture. No dislocation. Soft tissue swelling about the left foot and left ankle. Small plantar and posterior calcaneal spurs. Mild degenerative change along the dorsum of the hindfoot. 6 mm curvilinear lucency along the lateral aspect of the head of the fifth metatarsal with adjacent soft tissue swelling. IMPRESSION: 1. Mild joint space narrowing in the first metatarsophalangeal joint with adjacent soft tissue swelling. 2. No fracture identified. 3. Curvilinear lucency along the lateral aspect of the head of the fifth metatarsal with adjacent soft tissue swelling. The finding may be secondary to the patient's history of gout. Other etiologies are possible. If of concern, particularly if concern for osteoarthritis, consider an MRI with and without contrast for further assessment. Reviewed, dictated and finalized at location Q. IMPRESSION: 1. Mild joint space narrowing in the first metatarsophalangeal joint with adjac ent soft tissue swelling. 2. No fracture identified. 3. Curvilinear lucency along the lateral aspect of the head of the fifth metata rsal with adjacent soft tissue swelling. The finding may be secondary to the pa tient's history of gout. Other etiologies are possible. If of concern, particul heladio if concern for osteoarthritis, consider an MRI with and without contrast f or further assessment.
[2025-02-20 23:44] VITALS: PULSE 98; RESP 20; TEMP 36.7; O2SAT 99
--- OUTSIDE RECORDS SUMMARY | 2025-02-21 | XMS_ITS | Clinical Summary ---
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[employer]) Not on file Not on file Not on tramaine e Obstetrics History Last Filed Vital Signs Vital Sign Reading Time Taken Comments Blood Pressure 161/92 05/28/2017 7:56 PM [employer] Pulse 78 05/28/2017 7:56 PM [employer] Temperature 36.6 C (97.8 F) 05/28/2017 7:56 PM [employer] Respiratory Rate - - Oxygen Saturation 98% 05/28/2017 7:56 PM [employer]OC[employer]ER Inhaled Oxygen Concentration - - Weight 122.5 kg (270 lb) 05/21/2021 1:43 PM [employer]OC[employer] Height 177.8 cm (5' 10) 05/21/2021 1:43 PM [employer]OC[employer] Body Mass Index 38.74 05/21/2021 1:43 PM [employer]OC[employer] Plan of Treatment Not on file Insurance IDPA IDPA Care Teams Detail Technician Relationship Specialty Start Date End Date Herman Spencer MD PCP - General Emergency Medicine 02/21/21
--- OUTSIDE RECORDS SUMMARY | 2025-02-21 00:01 | XMS_ITS | Clinical Summary ---
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
--- NOTE | 2025-02-21 00:18 | ED_ITS ---
HPI - Extremity Problem General Chief complaint: Extremity Problem,Nontraumatic Stated complaint: gout Time Seen by Provider: 02/20/25 23:52 Source: patient Mode of arrival: ambulatory Limitations: no limitations History of Present Illness HPI Narrative: This is a 44 year old male that presents to the ER for left foot pain. Ongoing over the last week. Reports swelling, pain, history of gout. Is currently taking Allopurinol. Denies fevers. 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 They have 1 child together and he has 3 other children. He drinks alcohol occasionally and in moderation moderation. He denies illicit substance use. He is interested in stopping tobacco use. It was discussed with him that they peeing and E cigarettes were not unacceptable alternative to smoking. Years smoked: 8 Smoking status: Current every day smoker Tobacco type: cigarettes Alcohol intake: unknown Substance use: never Substance use type: does not use Gender identity (if verbalized by the patient): Male Spiritual care concerns: No Agree to blood products: Yes Exam 2 Narrative: GENERAL: Well-appearing, well-nourished, and in no acute distress. HEAD: Normocephalic, atraumatic. EYES: EOMI. CHEST: No respiratory distress. HEART: Regular rate EXTREMITIES: Normal range of motion. Mild edema about the left foot and ankle. No overlying redness. Normal DP pulse. Normal sensation SKIN: Warm, dry, no rash. NEURO: No focal deficits. Alert and oriented x3. PSYCH: Normal mood and affect Course Course Emergency Course: Patient updated on workup and agrees with plan of care Vital Signs Vital signs: Vital Signs Temperature 98.1 F 02/20/25 23:44 Pulse Rate 98 02/20/25 23:44 Respiratory Rate 20 02/20/25 23:44 Pulse Oximetry 99 02/20/25 23:44 Oxygen Delivery Room Air 02/20/25 23:44 Temperature 98.1 F 02/20/25 23:44 Pulse Rate 98 02/20/25 23:44 Respiratory Rate 20 02/20/25 23:44 Pulse Oximetry 99 02/20/25 23:44 Oxygen Delivery Room Air 02/20/25 23:44 MDM - Extremity (Nontraumatic) MDM Narrative Medical decision making narrative: Patient presents to the emergency department for left foot and ankle pain. Reporting history of gout, pain similar to previous flares. He is afebrile and nontoxic appearing. Cbc without leukocytosis. Inflammatory markers are mildly elevated. Left foot x-ray without acute osseous abnormalities. Patient is already taking allopurinol. Will add on indomethacin. Instructed to have continued follow-up with his primary provider. He was given warnings to return to the ER Differential Diagnosis Differential diagnosis: Likely gout and other (osteoarthritis) Lab Data Attestation: I reviewed the patient's lab results. 02/21/25 00:34 02/21/25 00:34 Labs: Lab Results 02/21/25 Range/Units 00:34 WBC 6.8 (4.5-10.0) K/mm3 RBC 5.01 (4.6-6.20) M/mm3 Hgb 13.6 L (14.0-18.0) g/dL Hct 41.1 L (42.0-52.0) % MCV 82.0 (80-100) fl MCH 27.1 (26-34) pg MCHC 33.1 (32-36) g/dl RDW 12.8 (11.5-14.5) % Plt Count 299 (150-375) k/mm3 MPV 12.1 H (7.4-10.4) fl Immature Gran % (Auto) 1.0 H (0-0.5) % Neut % (Auto) 60.9 (45.5-73.1) % Lymph % (Auto) 25.2 (18.3-44.2) % Bonner % (Auto) 7.2 (2.6-8.5) % Eos % (Auto) 5.1 H (0-4.4) % Baso % (Auto) 0.6 (0.2-1.2) % Lymph # (Auto) 1.72 (0.9-3.2) K/mm3 Bonner # (Auto) 0.5 (0.1-0.6) K/mm3 Eos # (Auto) 0.4 H (0-0.3) K/mm3 Baso # (Auto) 0.0 (0.0-0.1) K/mm3 Abs Immat Gran (auto) 0.07 H (0.00-0.031) K/mm3 Absolute Neuts (auto) 4.2 (1.3-6.7) K/mm3 Absolute Nucleated RBC 0.000 (0.0-0.012) K/mm3 Nucleated RBC % 0.0 (0.0-0.2) % ESR 31 H (0-20) mm/hr Sodium 141 (137-145) mmol/L Potassium 3.9 (3.4-5.0) mmol/L Chloride 103 (98-107) mmol/L Carbon Dioxide 26 (22-30) mmol/L Anion Gap 12 (4-12) mmol/L BUN 13 (9-20) mg/dL Creatinine 1.23 (0.7-1.3) mg/dL Estim Creat Clear Calc 92 ml/min Estimated GFR > 60 (59 - ) Glucose 140 H (65-110) mg/dL Uric Acid 6.2 (3.5-8.5) mg/dL Calcium 9.5 (8.4-10.2) mg/dL C-Reactive Protein 1.5 H (<1.0) mg/dL Imaging Data Radiologist's impression: Foot x-ray: No acute findings or erosive lesions Critical Care Time Critical Care Time Critical Care Time: No Discharge Plan Discharge Clinical Impression: Gout flare Qualifiers: Gout site: ankle Gout etiology: unspecified cause Laterality: left Qualified Code(s): M10.9 - Gout, unspecified Patient Disposition: Home Condition: Stable Instructions: Gout (ED) Additional Instructions: Return to the ER if you experience fever, redness and swelling of your extremity, numbness or any other symptoms that are concerning to you Ice and elevate extremity. Continue Allopurinol. Take Indomethacin as prescribed. Take Tylenol as needed Follow up with your doctor for further care. Patient Language: Chinese Prescriptions: New indomethacin 50 mg capsule 50 mg PO TID 7 Days Qty: 21 0RF Rx Instructions: administer with food or milk No Action carvedilol [Coreg] 6.25 mg tablet 6.25 mg PO BID Qty: 60 0RF Rx Instructions: must administer with a meal/food amlodipine 10 mg tablet 10 mg PO DAILY Qty: 30 0RF methylprednisolone [Medrol (Francesco)] 4 mg tablets,dose pack See Rx Instructions .ROUTE .COMPLEX Qty: 21 0RF Rx Instructions: for 6 days amlodipine 10 mg tablet 10 mg PO DAILY 30 Days Qty: 30 0RF carvedilol 6.25 mg tablet 6.25 mg PO BID 30 Days Qty: 60 0RF Rx Instructions: must administer with a meal/food cyclobenzaprine 10 mg tablet 10 mg PO TID PRN (Reason: muscle spasm) Qty: 14 0RF methylprednisolone 4 mg tablets,dose pack See Rx Instructions .ROUTE .COMPLEX Qty: 21 0RF Rx Instructions: orally per package directions prednisone 20 mg tablet 40 mg PO DAILY 5 Days Qty: 10 0RF diclofenac sodium 75 mg tablet,delayed release (DR/EC) 75 mg PO BID PRN (Reason: pain) Qty: 10 0RF omeprazole 20 mg capsule,delayed release(DR/EC) 20 mg PO DAILY Qty: 14 0RF Follow-up/Referrals: Herman Spencer MD [Primary Care Provider, Family Practice]
[2025-02-21 00:57] LABS: Anion Gap 12 mmol/L (4-12); Blood Urea Nitrogen 13 mg/dL (9-20); CRP 1.5 mg/dL (<1.0); Calcium 9.5 mg/dL (8.4-10.2); Carbon Dioxide 26 mmol/L (22-30); Chloride 103 mmol/L (98-107); Estimated CRCL calculation 92 ml/min; Estimated Glomerular Filt Rate > 60; Glucose 140 mg/dL (65-110); Potassium 3.9 mmol/L (3.4-5.0); Sodium 141 mmol/L (137-145); Uric Acid 6.2 mg/dL (3.5-8.5)
[2025-02-21 01:15] LABS: Hematocrit 41.1 % (42.0-52.0); Hemoglobin 13.6 g/dL (14.0-18.0); Immature Granulocyte Percent A 1.0 % (0-0.5); Lymphocytes Absolute Auto 1.72 K/mm3 (0.9-3.2); Mean Corpuscular HGB Conc 33.1 g/dl (32-36); Mean Corpuscular Hemoglobin 27.1 pg (26-34); Mean Corpuscular Volume 82.0 fl (80-100); Nucleated Red Blood Cells Absolute Auto 0.000 K/mm3 (0.0-0.012); Nucleated Red Blood Cells Perc 0.0 % (0.0-0.2); Platelet Count Result 299 k/mm3 (150-375); Red Blood Count 5.01 M/mm3 (4.6-6.20); White Blood Count 6.8 K/mm3 (4.5-10.0)
== END 2025-02-21 04:01 | disposition home or self-care (01) ==
PROVIDERS: Emergency Provider Physician Assistant; PCP Emergency Medicine
DX: M10.9 Gout, unspecified (principal); F17.210 Nicotine dependence, cigarettes, uncomplicated; I10 Essential (primary) hypertension; E66.9 Obesity, unspecified; Z68.41 Body mass index [BMI] 40.0-44.9, adult
CPT/HCPCS: 36415; 73630; 80048; 84550; 85025; 85652; 86140; 99283